=== PATIENT | male | born 1950 | race Hispanic/Latino ===

== ENCOUNTER 2018-06-22 09:02 | Inpatient (IN) | payer MEDICAID, MEDICARE ==
[2018-06-22] MEDS ORDERED: TDAP Vaccine 0.5 mL Syr IM ONE (09:19)
--- NOTE | 2018-06-22 09:26 | ED PDOC ---
Arrival/HPI - General Chief Complaint: Syncope Time Seen by Provider: 06/22/18 09:03 Historian: Patient - Critical Care Critical Care Minutes: 30 minutes - History of Present Illness Narrative History of Present Illness (Text): 06/22/18 09:23 A 67 year old male is brought into the emergency department for further evaluation s/p syncopal episode. Patient reports that he was at [employer] doing a reading when he syncopized, sustaining lacerations to his left eye and left lower lip. He states that he felt sweaty and nauseous at the time. He notes that he has been nauseous intermittently for the last days. The patient denies fevers, chills, headache, dizziness, lightheadedness, palpitations, chest pain, shortness of breath, dyspnea on exertion, cough, abdominal pain, vomiting, diarrhea, back pain, neck pain, urinary/bowel changes, or any other complaint. Time/Duration: Prior to Arrival Symptom Onset: Sudden Symptom Course: Resolved Activities at Onset: Rest, Light Context: Other (Orthodoxy) Associated Symptoms (Text): 06/22/18 10:27 syncopal episode in [employer] this morning. No chest pain or palpitations. Some nausea and dizziness. No vomiting. No dyspnea. No headache. No numbness tingling or paresthesias. Generalized, but no focal, weakness. He has never experienced this previously. Past Medical History - Provider Review Nursing Documentation Reviewed: Yes - Psychiatric Hx Substance Use: No Family/Social History - Physician Review Nursing Documentation Reviewed: Yes Family/Social History: No Known Family HX Smoking Status: Never Smoked Hx Alcohol Use: No Hx Substance Use: No Allergies/Home Meds Allergies/Adverse Reactions: Allergies No Known Allergies Allergy (Verified 06/22/18 09:19) Home Medications: Home Meds Medication Instructions Recorded Confirmed Simvastatin [Zocor] 20 mg PO DAILY 06/22/18 06/22/18 Review of Systems - Physician Review All systems were reviewed & negative as marked: Yes - Review of Systems Constitutional: absent: Fatigue, Fevers Respiratory: absent: SOB, Cough Cardiovascular: Syncope. absent: Chest Pain, Palpitations, LARKIN Gastrointestinal: Nausea. absent: Abdominal Pain, Stool Changes, Diarrhea, Vomiting Musculoskeletal: absent: Back Pain, Neck Pain Neurological: absent: Headache, Dizziness, Focal Weakness, Gait Changes Endocrine: Diaphoresis Physical Exam Temperature: Afebrile Blood Pressure: Normal Pulse: Regular Respiratory Rate: Normal Appearance: Positive for: Well-Appearing, Non-Toxic, Comfortable Pain Distress: None Mental Status: Positive for: Alert and Oriented X 3 - Systems Exam Head: Present: Normocephalic, Laceration (3 cm laceration of the left eyebrow. ) Pupils: Present: PERRL Extroacular Muscles: Present: EOMI Conjunctiva: Present: Normal Ears: Present: NORMAL TM, Normal Canal. No: Erythema, TM Bulging Mouth: Present: Moist Mucous Membranes. No: Normal Lips (Superficial laceration of left lower lip. does not require intervention.) Pharnyx: No: ERYTHEMA, EXUDATE, TONSILS ENLARGED Neck: Present: Normal Range of Motion Respiratory/Chest: Present: Clear to Auscultation, Good Air Exchange. No: Respiratory Distress, Accessory Muscle Use Cardiovascular: Present: Regular Rate and Rhythm, Normal S1, S2. No: Murmurs Abdomen: No: Tenderness, Distention, Peritoneal Signs Back: Present: Normal Inspection Upper Extremity: Present: Normal Inspection. No: Cyanosis, Edema Lower Extremity: Present: Normal Inspection. No: Edema Neurological: Present: GCS=15, CN II-XII Intact, Speech Normal, Motor Func Grossly Intact, Normal Sensory Function, Normal Cerebellar Funct Skin: Present: Warm, Dry, Normal Color. No: Rashes Psychiatric: Present: Alert, Oriented x 3, Normal Insight, Normal Concentration Medical Decision Making ED Course and Treatment: 06/22/18 09:27 Impression: A 67 year old male presents to the emergency department for further evaluation s/p syncopal episode. Plan: -- Head CT -- EKG -- Chest X-ray -- Labs -- Urinalysis -- Boostrix Vaccine -- Reassess and disposition Progress Notes: PROCEDURE: LACERATION REPAIR Performed by the emergency provider Location: Just inferior to left eyebrow Length: 3 cm Distal CMS: Normal. No deficits. Neurovascularly intact. Anesthesia: 2 cc of Lidocaine 1% Preparation: The wound was cleaned with NS and Betadyne. The area was prepped and draped in the usual sterile fashion. Exploration: The wound was explored and 3 small foreign bodies were found and removed. Procedure: The wound was closed with 6- O proline. There was uninterrupted approximation. In total, 7 were used. Post-Procedure: Good closure and hemostasis. The patient tolerated the procedure well and there were no complications. CSM remains intact. Post procedure dressing applied. 06/22/18 10:29 EKG shows normal sinus rhythm rate approximately [address] or T-wave changes. 06/22/18 10:29 eyebrow sutured by KATHIA Santoro. Chest X-ray Signed By: Brian Rehman MD Date Signed: 06/22/18 1030 IMPRESSION: No active disease. PROCEDURE: CT HEAD WITHOUT CONTRAST Signed By: Brian Rehman MD Date Signed: 06/22/18 1044 IMPRESSION: There is a small amount of subarachnoid blood in the precentral sulcus over the left posterior frontal convexity. 06/22/18 11:03: Case discussed with Dr. Sprague, covering for Dr. Coles, who accepts patient to Dr. Coles's service. Case discussed with Dr. Carranza. 06/22/18 11:05: Case discussed with Dr. Marsh. 06/22/18 11:34 - Lab Interpretations I have reviewed the lab results: Yes - RAD Interpretation Radiology Orders: 06/22/18 09:20 HEAD W/O CONTRAST [CT] Stat CHEST PORTABLE [RAD] Stat - EKG Interpretation Interpreted by ED Physician: Yes Type: 12 lead EKG - Medication Orders Current Medication Orders: Discontinued Medications Tetanus/Reduced Diphtheria/Acell Pertussis (Boostrix Vaccine Inj) 0.5 ml IM .ONCE ONE Stop: 06/22/18 09:20 - Scribe Statement The provider has reviewed the documentation as recorded by the Tobias Porras Provider Scribe Attestation: All medical record entries made by the Scribriccardo were at my direction and personally dictated by me. I have reviewed the chart and agree that the record accurately reflects my personal performance of the history, physical exam, medical decision making, and the department course for this patient. I have also personally directed, reviewed, and agree with the discharge instructions and disposition. Disposition/Present on Arrival - Present on Arrival Any Indicators Present on Arrival: No History of DVT/PE: No History of Uncontrolled Diabetes: No Urinary Catheter: No History of Decub. Ulcer: No History Surgical Site Infection Following: None - Disposition Have Diagnosis and Disposition been Completed?: Yes Diagnosis: Syncope, Subarachnoid hemorrhage after traumatic injury without open intracranial wound, with prolonged loss of consciousness and return to pre- existing level of consciousness, Eyebrow laceration, Nausea Disposition: HOSPITALIZED Disposition Time: 11:07 Patient Plan: Admission, ICU Patient Problems: Current Active Problems Problem Status Onset Eyebrow laceration Acute Nausea Acute Subarachnoid hemorrhage after traumatic injury without open intracranial wound, with prolonged loss of consciousness and return to pre-existing level of consciousness Acute Syncope Acute Condition: CRITICAL
[2018-06-22 09:56] LABS: BASO # 0.02 K/mm3 (0.0-2.0); BASO % 0.2 % (0.0-3.0); EOS % 0.3 % (1.5-5.0); GRAN # 10.04 (1.4-6.5); GRAN % 78.8 % (50.0-68.0); HEMOGLOBIN 12.9 g/dL (14.0-18.0); LYMPH # 1.2 (1.2-3.4); LYMPH % 9.6 % (22.0-35.0); MEAN CELL VOLUME 92.3 fl (80.0-105.0); MEAN CORPUSCULAR HEMOGLOBIN 30.9 pg (25.0-35.0); MEAN CORPUSCULAR HGB CONC 33.4 g/dl (31.0-37.0); MEAN PLATELET VOLUME 9.4 fl (7.0-11.0); MONO # 1.4 (0.1-0.6); MONO % 11.1 % (1.0-6.0); RBC 4.18 10^6/uL (3.5-6.1); RED CELL DISTRIBUTION WIDTH 13.5 % (11.5-14.5); WHITE BLOOD COUNT 12.7 10^3/uL (4.5-11.0)
[2018-06-22 10:06] LABS: ALB/GLOB RATIO 1.2 (1.1-1.8); ALBUMIN 4.4 g/dL (3.0-4.8); ALT/SGPT 29 U/L (7-56); AST/SGOT 52 U/L (17-59); BLOOD UREA NITROGEN 16 mg/dL (7-21); GFR NON-AFRICAN AMERICAN > 60
[2018-06-22 10:17] LABS: TROPONIN I < 0.01 ng/mL
--- NOTE | 2018-06-22 10:34 | RAD ---
Date of service: 06/22/2018 HISTORY: syncope COMPARISON: No prior. FINDINGS: LUNGS: No active pulmonary disease. PLEURA: No significant pleural effusion identified, no pneumothorax apparent. CARDIOVASCULAR: No aortic atherosclerotic calcification present. Normal cardiac size. No pulmonary vascular congestion. OSSEOUS STRUCTURES: No significant abnormalities. VISUALIZED UPPER ABDOMEN: Normal. OTHER FINDINGS: None. IMPRESSION: No active disease.
[2018-06-22 10:42] LABS: CK-MB 2.8 ng/mL (0.0-3.6)
--- NOTE | 2018-06-22 10:48 | CT ---
Date of service: 06/22/2018 PROCEDURE: CT HEAD WITHOUT CONTRAST. HISTORY: syncope COMPARISON: None available. TECHNIQUE: Axial computed tomography images were obtained through the head/brain without intravenous contrast. Radiation dose: Total exam DLP = 941.23 mGy-cm. This CT exam was performed using one or more of the following dose reduction techniques: Automated exposure control, adjustment of the mA and/or kV according to patient size, and/or use of iterative reconstruction technique. FINDINGS: HEMORRHAGE: There is a small amount of subarachnoid blood in the precentral sulcus over the left posterior frontal convexity. This is best seen on image 49 of series 4. The pattern fits a posttraumatic bleed. Aneurysmal bleeds would be expected to show hemorrhage in the suprasellar cistern. BRAIN: No mass effect or edema. No atrophy or chronic microvascular ischemic changes. VENTRICLES: Unremarkable. No hydrocephalus. CALVARIUM: Unremarkable. PARANASAL SINUSES: Unremarkable as visualized. No significant inflammatory changes. MASTOID AIR CELLS: Unremarkable as visualized. No inflammatory changes. OTHER FINDINGS: Findings were discussed with Dr. Garcia at 10:40 a.m. IMPRESSION: There is a small amount of subarachnoid blood in the precentral sulcus over the left posterior frontal convexity.
[2018-06-22 11:06] LABS: INR 1.22; PARTIAL THROMBOPLASTIN TIME 29.3 Seconds (25.1-36.5); PROTHROMBIN TIME 14.1 SECONDS (9.4-12.5)
[2018-06-22 11:50] VITALS: BMI 23.6
[2018-06-22] MEDS ORDERED: Sodium Chloride 0.9% 1,000 ML IV STA ×2 (13:12→16:00)
[2018-06-22 14:01] LABS: URINE BILIRUBIN NEGATIVE (NEGATIVE); URINE BLOOD MODERATE (NEGATIVE); URINE GLUCOSE (UA) NEGATIVE (NEGATIVE); URINE LEUKOCYTE ESTERASE NEGATIVE Leu/uL (NEGATIVE); URINE PROTEIN TRACE mg/dL (<30 mg/dL); URINE UROBILINOGEN 0.2 E.U./dL (<1 E.U./dL)
[2018-06-22 14:02] LABS: URINE APPEARANCE CLEAR (CLEAR); URINE COLOR YELLOW (YELLOW)
[2018-06-22 14:10] LABS: URINE BACTERIA MANY /hpf; URINE HYALINE CAST 0 - 2 /hpf; URINE RBC 20 - 25 /hpf (0-2)
[2018-06-22 14:11] LABS: URINE AMORPHOUS SEDIMENT FEW /hpf; URINE COARSE GRANULAR CAST TRACE /hpf
--- NOTE | 2018-06-22 18:40 | CON ---
DATE OF CONSULTATION: 06/22/2018 REQUESTING PHYSICIAN: Dr. Coles CHIEF COMPLAINT: The patient had syncopal episode. HISTORY OF PRESENT ILLNESS: The patient is a 67-year-old male that has been healthy most of his life. He has a history of hyperlipidemia and is on medications for that. He states he has no high blood pressure. No other history of syncopal episodes. The patient was at [employer] and was reading when he had the feelings of old being flushed and sweaty and had syncopal episode. There is a laceration on the upper part of his left eyelid as well as his lower lip. The patient has no complaints of headache or dizziness at this time. No nauseousness or vomiting. No other complaints that would be secondary to hitting his head. Noted on CT scan of the of the head, it does show that he has a small subarachnoid bleed. Neurosurgery has been notified and the patient has been admitted to intensive care unit for observation. PAST MEDICAL HISTORY: As above. FAMILY HISTORY: Noncontributory. SOCIAL HISTORY: No history of smoking, EtOH abuse or drug abuse. CURRENT MEDICATIONS: Can be evaluated as per the nurse's intake form. ALLERGIES: HE HAS NO KNOWN ALLERGIES. REVIEW OF SYSTEMS: CONSTITUTIONAL: All negative. HEENT: Note that the patient had a syncopal episode and laceration over his left eye as well as laceration of his lip with some ecchymosis of that area as well. RESPIRATORY: All negative. CARDIOVASCULAR: The patient did have the syncopal episode. GASTROINTESTINAL: He had some complaints of nauseousness. : All negative. MUSCULOSKELETAL: All negative. NEUROPSYCHIATRIC: The patient had the syncopal episode. ENDOCRINE: All negative. IMMUNOLOGICAL: Negative. HEMATOLOGICAL: Negative. PHYSICAL EXAMINATION: VITAL SIGNS: His temperature is 98, pulses is 82, respirations are 19, and BP is 129/83. SKIN: Warm and dry. HEENT: Head is atraumatic, but the face shows a fairly large laceration over the left eye and a small laceration on the left side on his lower lip. There is some ecchymosis around the left eye and the lip as well. NECK: The patient has no JVD. No thyroid enlargement or lymph nodes. HEART: Regular rate and rhythm. Normal S1 and S2. LUNGS: Clear breath sounds bilaterally. ABDOMEN: Soft, nontender. Normal bowel sounds. No organomegaly noted. GENITALIA: Deferred. RECTAL: Deferred. MUSCULOSKELETAL: No joint deformities. EXTREMITIES: No significant edema. NEUROLOGICAL: He is grossly intact. LABORATORY DATA: His white count is 12.7, hemoglobin is 12.9, hematocrit 38.6 with platelets of 282,000. The patient's PT is 14.1, INR is 1.22, PTT is 29.3. Sodium is 137, potassium 3.8, chloride 101, CO2 of 27 with a BUN of 16, creatinine of 0.8 and a glucose of 126. The patient's chest x-ray is within normal limits. CT of the head reveals that there is a small amount of subarachnoid blood in the precentral sulcus over the left posterior frontal convexity. IMPRESSION: This patient has a syncopal episode and also noted to having a small subarachnoid bleed. He has a facial laceration over the left eye with contusions in that area and a small laceration of his lower lip. Note that the patient did complain of upper respiratory tract infection with cough for the past 2 days. PLAN: The patient will be admitted to the intensive care unit for close observation. We will do close neuro checks. The patient has had neurosurgery consult. We will start IV fluids for hydration. The patient will be observed closely in the intensive care unit. We will continue to treat aggressively along with the other consultants and the primary care doctor. Keagan Marsh MD
--- NOTE | 2018-06-22 20:41 | CARD ---
APPROVED REPORT Date of service: 06/22/2018 EKG Measurement Heart [id number] <Conclusion> Normal sinus rhythm Normal ECG
--- NOTE | 2018-06-22 20:43 | CP.PCM.CON ---
History of Present Illness - History of Present Illness History of Present Illness: Tiny TSAH in one L frontal sulcus of no clinical import suggest f/u CT am - if unchanged/improved can dc Pt from NRS perspective Past Patient History - Past Social History Smoking Status: Never Smoked - CARDIAC Hx Hypercholesterolemia: Yes - MUSCULOSKELETAL/RHEUMATOLOGICAL Hx Falls: No - PSYCHIATRIC Hx Substance Use: No - SURGICAL HISTORY Hx Appendectomy: Yes Meds Allergies/Adverse Reactions: Allergies Allergy/AdvReac Type Severity Reaction Status Date / Time No Known Allergies Allergy Verified 06/22/18 09:19 - Medications Medications: Current Medications Acetaminophen (Tylenol 325mg Tab) 650 mg PO Q6H PRN PRN Reason: Fever >100.4 F Atorvastatin Calcium (Lipitor) 10 mg PO DAILY SHAWN Last Admin: 06/22/18 17:42 Dose: 10 mg Sodium Chloride (Sodium Chloride 0.9%) 1,000 mls @ 75 mls/hr IV [id number] STA Stop: 06/23/18 02:31 Last Admin: 06/22/18 16:00 Dose: 75 mls/hr Results - Vital Signs Recent Vital Signs: Last Vital Signs Temp 99 F 06/22/18 16:00 Pulse 84 06/22/18 19:50 Resp 35 H 06/22/18 19:50 BP 130/60 06/22/18 19:00 Pulse Ox 96 06/22/18 19:50 - Labs Result Diagrams: 06/22/18 09:40 06/22/18 09:40 Labs: Laboratory Results - last 24 hr 06/22/18 06/22/18 06/22/18 09:40 09:40 09:40 WBC 12.7 H RBC 4.18 Hgb 12.9 L Hct 38.6 L MCV 92.3 MCH 30.9 MCHC 33.4 RDW 13.5 Plt Count 282 MPV 9.4 Gran % 78.8 H Lymph % (Auto) 9.6 L Gallia % (Auto) 11.1 H Eos % (Auto) 0.3 L Baso % (Auto) 0.2 Gran # 10.04 H Lymph # (Auto) 1.2 Gallia # (Auto) 1.4 H Eos # (Auto) 0.0 Baso # (Auto) 0.02 PT 14.1 H INR 1.22 APTT 29.3 Sodium 137 Potassium 3.8 Chloride 101 Carbon Dioxide 27 Anion Gap 13 BUN 16 Creatinine 0.8 Est GFR ( Amer) > 60 Est GFR (Non-Af Amer) > 60 Random Glucose 126 H Calcium 9.0 Phosphorus 2.6 Magnesium 2.2 Total Bilirubin 0.6 AST 52 ALT 29 Alkaline Phosphatase 85 Lactate Dehydrogenase 582 Total Creatine Kinase 759 H CK-MB (CK-2) 2.8 CK-MB (CK-2) % Cancelled Troponin I < 0.01 Total Protein 8.0 Albumin 4.4 Globulin 3.6 Albumin/Globulin Ratio 1.2 Urine Color Urine Appearance Urine pH Ur Specific Ronan Urine Protein Urine Glucose (UA) Urine Ketones Urine Blood Urine Nitrate Urine Bilirubin Urine Urobilinogen Ur Leukocyte Esterase Urine RBC Urine WBC Ur Epithelial Cells Amorphous Sediment Urine Bacteria Hyaline Casts Coarse Granular Casts 06/22/18 06/22/18 13:30 17:10 WBC RBC Hgb Hct MCV MCH MCHC RDW Plt Count MPV Gran % Lymph % (Auto) Gallia % (Auto) Eos % (Auto) Baso % (Auto) Gran # Lymph # (Auto) Gallia # (Auto) Eos # (Auto) Baso # (Auto) PT INR APTT Sodium Potassium Chloride Carbon Dioxide Anion Gap BUN Creatinine Est GFR ( Amer) Est GFR (Non-Af Amer) Random Glucose Calcium Phosphorus Magnesium Total Bilirubin AST ALT Alkaline Phosphatase Lactate Dehydrogenase Total Creatine Kinase CK-MB (CK-2) CK-MB (CK-2) % Troponin I < 0.01 Total Protein Albumin Globulin Albumin/Globulin Ratio Urine Color Yellow Urine Appearance Clear Urine pH 6.0 Ur Specific Ronan >= 1.030 Urine Protein Trace H Urine Glucose (UA) Negative Urine Ketones 40 H Urine Blood Moderate H Urine Nitrate Negative Urine Bilirubin Negative Urine Urobilinogen 0.2 Ur Leukocyte Esterase Negative Urine RBC 20 - 25 H Urine WBC 1 - 3 Ur Epithelial Cells None Amorphous Sediment Few Urine Bacteria Many Hyaline Casts 0 - 2 Coarse Granular Casts Trace
--- NOTE | 2018-06-22 21:53 | HP ---
DATE OF EXAM: 06/22/2018 HISTORY OF PRESENT ILLNESS: The patient is a 67-year-old. The patient . The patient states [place] [employer]. After he read his , he was walking down and he does not know what happened, and he found himself on the floor and people were around him. He denies any chest pain. No history of losing consciousness. He states he might have lost consciousness for a minute, but he regained. He does admit not eating anything or drinking since he woke up, and he does not have any episode like this before. He denies any chest pain. No history of palpitation. He states he is pretty healthy and only takes antihypertensive. Denies any headache. Denies any dizziness. The patient states he has mild headache now and currently, otherwise, he is feeling well except discomfort in the left forehead area where he had a laceration and he got it stitched. 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 ALLERGIES: HE IS NOT ALLERGIC TO ANY MEDICATIONS. MEDICATIONS: At home, he is on Zocor 20 mg daily. SOCIAL HISTORY: Denies smoking or drinking alcohol. REVIEW OF SYSTEMS: Only left forehead discomfort and mild headache. PHYSICAL EXAMINATION GENERAL: He is awake, alert, oriented, fully communicative, answers appropriately. HEENT: He has a right forehead small hematoma and has a laceration that has been stitched in the ER. VITAL SIGNS: He is afebrile, pulse 92, respirations 20, blood pressure 129/67. LUNGS: Bilateral fair airflow. No rhonchi or crackle. HEART: S1, S2 audible. ABDOMEN: Soft, nontender. No rebound. No guarding. NEUROLOGIC: The patient is awake, alert, oriented, communicative. Moves all extremities. LABORATORY DATA: WBC is 12.7, hemoglobin 12.9, hematocrit 38.6, platelets 282. PT 14.1, INR 1.22. Chemistry; sodium 137, potassium 3.8, chloride 101, CO2 of 27, BUN 16, creatinine 0.8, blood sugar 127. LFTs are within normal limits. CPK 759. Troponin is 0.01. Urine shows 20-25 rbc's, moderate blood. DIAGNOSTIC DATA: CT scan of the head and brain done that shows there is a small amount of subarachnoid blood in the precentral sulcus over the left posterior frontal convexity. ASSESSMENT: 1. Probably syncope, could be dehydration. 2. Small subarachnoid posterior frontal bleed. 3. History of hyperlipidemia. 4. Left forehead laceration. PLAN: The patient will be watched over in ICU. Give him IV fluid. We will order for carotid Doppler, resume his statins, order for echocardiogram, and we will follow up his electrolytes, thyroid profile, CBC, and the troponin in a.m. Khai Sprague MD
[2018-06-23 06:36] LABS: BASO # 0.01 K/mm3 (0.0-2.0); BASO % 0.1 % (0.0-3.0); EOS % 0.1 % (1.5-5.0); GRAN # 8.72 (1.4-6.5); GRAN % 75.7 % (50.0-68.0); HEMOGLOBIN 13.2 g/dL (14.0-18.0); LYMPH # 1.6 (1.2-3.4); LYMPH % 13.9 % (22.0-35.0); MEAN CELL VOLUME 92.9 fl (80.0-105.0); MEAN CORPUSCULAR HEMOGLOBIN 30.4 pg (25.0-35.0); MEAN CORPUSCULAR HGB CONC 32.8 g/dl (31.0-37.0); MEAN PLATELET VOLUME 9.2 fl (7.0-11.0); MONO # 1.2 (0.1-0.6); MONO % 10.2 % (1.0-6.0); RBC 4.34 10^6/uL (3.5-6.1); RED CELL DISTRIBUTION WIDTH 13.5 % (11.5-14.5); WHITE BLOOD COUNT 11.5 10^3/uL (4.5-11.0)
--- NOTE | 2018-06-23 06:56 | CP.CCUPN ---
<Herbert Harris - Last Filed: 06/23/18 07:27> CCU Objective - Vital Signs / Intake & Output Vital Signs (Last 4 hours): Vital Signs Pulse Resp BP Pulse Ox 06/23/18 06:40 85 34 H 99 06/23/18 06:30 95 H 39 H 98 06/23/18 06:20 83 23 99 06/23/18 06:10 78 23 98 06/23/18 06:00 77 18 152/80 H 99 06/23/18 05:50 75 26 H 98 06/23/18 05:40 82 25 H 97 06/23/18 05:30 76 18 98 06/23/18 05:20 79 14 98 06/23/18 05:10 73 22 99 06/23/18 05:00 148/73 06/23/18 04:59 72 15 97 06/23/18 04:50 75 12 98 06/23/18 04:40 75 22 98 06/23/18 04:30 75 12 98 06/23/18 04:20 74 22 98 06/23/18 04:10 76 37 H 98 06/23/18 04:00 78 21 152/72 H 99 06/23/18 03:50 73 16 99 06/23/18 03:40 75 20 98 06/23/18 03:30 81 36 H 98 Intake and Output (Last 8hrs): Intake & Output 06/22/18 06/23/18 06/23/18 22:59 06:59 14:59 Intake Total 980 810 Output Total 350 620 Balance 630 190 Weight 163 lb Intake: IV 300 750 Right Antecubital 300 750 Oral 680 60 Output: Urine 350 620 Urine, Voided 350 620 Stool 0 Other: # Bowel Movements 0 - Medications Active Medications: Active Medications Generic Name Dose Route Start Last Admin Trade Name Freq PRN Reason Stop Dose Admin Acetaminophen 650 mg 06/22/18 16:01 06/22/18 21:04 Tylenol 325mg Tab PO 650 mg Q6H PRN Administration Fever >100.4 F Atorvastatin Calcium 10 mg 06/22/18 16:00 06/22/18 17:42 Lipitor PO 10 mg DAILY SHAWN Administration - Patient Studies Lab Studies: Lab Studies 06/23/18 06/22/18 06/22/18 Range/Units 05:25 17:10 13:30 WBC 11.5 H (4.5-11.0) 10^3/uL RBC 4.34 (3.5-6.1) 10^6/uL Hgb 13.2 L (14.0-18.0) g/dL Hct 40.3 L (42.0-52.0) % MCV 92.9 (80.0-105.0) fl MCH 30.4 (25.0-35.0) pg MCHC 32.8 (31.0-37.0) g/dl RDW 13.5 (11.5-14.5) % Plt Count 270 (120.0-450.0) 10^3/uL MPV 9.2 (7.0-11.0) fl Gran % 75.7 H (50.0-68.0) % Lymph % (Auto) 13.9 L (22.0-35.0) % Ray % (Auto) 10.2 H (1.0-6.0) % Eos % (Auto) 0.1 L (1.5-5.0) % Baso % (Auto) 0.1 (0.0-3.0) % Gran # 8.72 H (1.4-6.5) Lymph # (Auto) 1.6 (1.2-3.4) Ray # (Auto) 1.2 H (0.1-0.6) Eos # (Auto) 0.0 (0.0-0.7) Baso # (Auto) 0.01 (0.0-2.0) K/mm3 PT (9.4-12.5) SECONDS INR APTT (25.1-36.5) Seconds Sodium (132-148) mmol/L Potassium (3.6-5.0) mmol/L Chloride (98-107) mmol/L Carbon Dioxide (21-33) mmol/L Anion Gap (10-20) BUN (7-21) mg/dL Creatinine (0.8-1.5) mg/dl Est GFR ( Amer) Est GFR (Non-Af Amer) Random Glucose (70-110) mg/dL Calcium (8.4-10.5) mg/dL Phosphorus (2.5-4.5) mg/dL Magnesium (1.7-2.2) mg/dL Total Bilirubin (0.2-1.3) mg/dL AST (17-59) U/L ALT (7-56) U/L Alkaline Phosphatase (38-126) U/L Lactate Dehydrogenase (333-699) U/L Total Creatine Kinase (35-230) U/L CK-MB (CK-2) (0.0-3.6) ng/mL CK-MB (CK-2) % Troponin I < 0.01 ng/mL Total Protein (5.8-8.3) g/dL Albumin (3.0-4.8) g/dL Globulin gm/dL Albumin/Globulin Ratio (1.1-1.8) Urine Color Yellow (YELLOW) Urine Appearance Clear (CLEAR) Urine pH 6.0 (4.7-8.0) Ur Specific [place] >= 1.030 (1.005-1.035) Urine Protein Trace H (<30 mg/dL) mg/dL Urine Glucose (UA) Negative (NEGATIVE) mg/dL Urine Ketones 40 H (NEGATIVE) mg/dL Urine Blood Moderate H (NEGATIVE) Urine Nitrate Negative (NEGATIVE) Urine Bilirubin Negative (NEGATIVE) Urine Urobilinogen 0.2 (<1 E.U./dL) E.U./dL Ur Leukocyte Esterase Negative (NEGATIVE) Velia/uL Urine RBC 20 - 25 H (0-2) /hpf Urine WBC 1 - 3 (0-6) /hpf Ur Epithelial Cells None (0-5) /hpf Amorphous Sediment Few (NONE) /hpf Urine Bacteria Many (NONE) /hpf Hyaline Casts 0 - 2 (NONE) /hpf Coarse Granular Casts Trace (NONE) /hpf 06/22/18 06/22/18 06/22/18 Range/Units 09:40 09:40 09:40 WBC 12.7 H (4.5-11.0) 10^3/uL RBC 4.18 (3.5-6.1) 10^6/uL Hgb 12.9 L (14.0-18.0) g/dL Hct 38.6 L (42.0-52.0) % MCV 92.3 (80.0-105.0) fl MCH 30.9 (25.0-35.0) pg MCHC 33.4 (31.0-37.0) g/dl RDW 13.5 (11.5-14.5) % Plt Count 282 (120.0-450.0) 10^3/uL MPV 9.4 (7.0-11.0) fl Gran % 78.8 H (50.0-68.0) % Lymph % (Auto) 9.6 L (22.0-35.0) % Ray % (Auto) 11.1 H (1.0-6.0) % Eos % (Auto) 0.3 L (1.5-5.0) % Baso % (Auto) 0.2 (0.0-3.0) % Gran # 10.04 H (1.4-6.5) Lymph # (Auto) 1.2 (1.2-3.4) Ray # (Auto) 1.4 H (0.1-0.6) Eos # (Auto) 0.0 (0.0-0.7) Baso # (Auto) 0.02 (0.0-2.0) K/mm3 PT 14.1 H (9.4-12.5) SECONDS INR 1.22 APTT 29.3 (25.1-36.5) Seconds Sodium 137 (132-148) mmol/L Potassium 3.8 (3.6-5.0) mmol/L Chloride 101 (98-107) mmol/L Carbon Dioxide 27 (21-33) mmol/L Anion Gap 13 (10-20) BUN 16 (7-21) mg/dL Creatinine 0.8 (0.8-1.5) mg/dl Est GFR ( Amer) > 60 Est GFR (Non-Af Amer) > 60 Random Glucose 126 H (70-110) mg/dL Calcium 9.0 (8.4-10.5) mg/dL Phosphorus 2.6 (2.5-4.5) mg/dL Magnesium 2.2 (1.7-2.2) mg/dL Total Bilirubin 0.6 (0.2-1.3) mg/dL AST 52 (17-59) U/L ALT 29 (7-56) U/L Alkaline Phosphatase 85 (38-126) U/L Lactate Dehydrogenase 582 (333-699) U/L Total Creatine Kinase 759 H (35-230) U/L CK-MB (CK-2) 2.8 (0.0-3.6) ng/mL CK-MB (CK-2) % Cancelled Troponin I < 0.01 ng/mL Total Protein 8.0 (5.8-8.3) g/dL Albumin 4.4 (3.0-4.8) g/dL Globulin 3.6 gm/dL Albumin/Globulin Ratio 1.2 (1.1-1.8) Urine Color (YELLOW) Urine Appearance (CLEAR) Urine pH (4.7-8.0) Ur Specific [place] (1.005-1.035) Urine Protein (<30 mg/dL) mg/dL Urine Glucose (UA) (NEGATIVE) mg/dL Urine Ketones (NEGATIVE) mg/dL Urine Blood (NEGATIVE) Urine Nitrate (NEGATIVE) Urine Bilirubin (NEGATIVE) Urine Urobilinogen (<1 E.U./dL) E.U./dL Ur Leukocyte Esterase (NEGATIVE) Velia/uL Urine RBC (0-2) /hpf Urine WBC (0-6) /hpf Ur Epithelial Cells (0-5) /hpf Amorphous Sediment (NONE) /hpf Urine Bacteria (NONE) /hpf Hyaline Casts (NONE) /hpf Coarse Granular Casts (NONE) /hpf Laboratory Results - last 24 hr 06/22/18 06/22/18 06/22/18 09:40 09:40 09:40 WBC 12.7 H RBC 4.18 Hgb 12.9 L Hct 38.6 L MCV 92.3 MCH 30.9 MCHC 33.4 RDW 13.5 Plt Count 282 MPV 9.4 Gran % 78.8 H Lymph % (Auto) 9.6 L Ray % (Auto) 11.1 H Eos % (Auto) 0.3 L Baso % (Auto) 0.2 Gran # 10.04 H Lymph # (Auto) 1.2 Ray # (Auto) 1.4 H Eos # (Auto) 0.0 Baso # (Auto) 0.02 PT 14.1 H INR 1.22 APTT 29.3 Sodium 137 Potassium 3.8 Chloride 101 Carbon Dioxide 27 Anion Gap 13 BUN 16 Creatinine 0.8 Est GFR ( Amer) > 60 Est GFR (Non-Af Amer) > 60 Random Glucose 126 H Calcium 9.0 Phosphorus 2.6 Magnesium 2.2 Total Bilirubin 0.6 AST 52 ALT 29 Alkaline Phosphatase 85 Lactate Dehydrogenase 582 Total Creatine Kinase 759 H CK-MB (CK-2) 2.8 CK-MB (CK-2) % Cancelled Troponin I < 0.01 Total Protein 8.0 Albumin 4.4 Globulin 3.6 Albumin/Globulin Ratio 1.2 Urine Color Urine Appearance Urine pH Ur Specific [place] Urine Protein Urine Glucose (UA) Urine Ketones Urine Blood Urine Nitrate Urine Bilirubin Urine Urobilinogen Ur Leukocyte Esterase Urine RBC Urine WBC Ur Epithelial Cells Amorphous Sediment Urine Bacteria Hyaline Casts Coarse Granular Casts 06/22/18 06/22/18 06/23/18 13:30 17:10 05:25 WBC 11.5 H RBC 4.34 Hgb 13.2 L Hct 40.3 L MCV 92.9 MCH 30.4 MCHC 32.8 RDW 13.5 Plt Count 270 MPV 9.2 Gran % 75.7 H Lymph % (Auto) 13.9 L Ray % (Auto) 10.2 H Eos % (Auto) 0.1 L Baso % (Auto) 0.1 Gran # 8.72 H Lymph # (Auto) 1.6 Ray # (Auto) 1.2 H Eos # (Auto) 0.0 Baso # (Auto) 0.01 PT INR APTT Sodium Potassium Chloride Carbon Dioxide Anion Gap BUN Creatinine Est GFR ( Amer) Est GFR (Non-Af Amer) Random Glucose Calcium Phosphorus Magnesium Total Bilirubin AST ALT Alkaline Phosphatase Lactate Dehydrogenase Total Creatine Kinase CK-MB (CK-2) CK-MB (CK-2) % Troponin I < 0.01 Total Protein Albumin Globulin Albumin/Globulin Ratio Urine Color Yellow Urine Appearance Clear Urine pH 6.0 Ur Specific [place] >= 1.030 Urine Protein Trace H Urine Glucose (UA) Negative Urine Ketones 40 H Urine Blood Moderate H Urine Nitrate Negative Urine Bilirubin Negative Urine Urobilinogen 0.2 Ur Leukocyte Esterase Negative Urine RBC 20 - 25 H Urine WBC 1 - 3 Ur Epithelial Cells None Amorphous Sediment Few Urine Bacteria Many Hyaline Casts 0 - 2 Coarse Granular Casts Trace Radiology Impressions: Radiology Impressions Chest X-Ray 06/22/18 09:20 IMPRESSION: No active disease. Head CT 06/22/18 09:20 IMPRESSION: There is a small amount of subarachnoid blood in the precentral sulcus over the left posterior frontal convexity. EKG/Cardiology Studies: Cardiology / EKG Studies 06/22/18 09:20 ELECTROCARDIOGRAM Stat Comment: Reason For Exam: syncope Critical Care Progress Note - Nutrition Nutrition: Nutrition Category Date Time Status Liquid Diet [DIET] Diets 06/22/18 Lunch Ordered <Anthony Jesus - Last Filed: 06/23/18 10:36> CCU Subjective - Physician Review Subjective (Free Text): Anthony Jesus, PGY-1 Progress Note for ICU Patient seen and evaluated at bedside. No acute events reported overnight. Left eyebrow sutured and lip bruise without active bleed. Reports mild blurry vision on L side but denies chest pain, palpitations, shortness of breath, headaches, numbness, tingling, fevers, chills. CCU Objective - Vital Signs / Intake & Output Vital Signs (Last 4 hours): Vital Signs Pulse Resp BP Pulse Ox 06/23/18 06:40 85 34 H 99 06/23/18 06:30 95 H 39 H 98 06/23/18 06:20 83 23 99 06/23/18 06:10 78 23 98 06/23/18 06:00 77 18 152/80 H 99 06/23/18 05:50 75 26 H 98 06/23/18 05:40 82 25 H 97 06/23/18 05:30 76 18 98 06/23/18 05:20 79 14 98 06/23/18 05:10 73 22 99 06/23/18 05:00 148/73 06/23/18 04:59 72 15 97 06/23/18 04:50 75 12 98 06/23/18 04:40 75 22 98 06/23/18 04:30 75 12 98 06/23/18 04:20 74 22 98 06/23/18 04:10 76 37 H 98 06/23/18 04:00 78 21 152/72 H 99 06/23/18 03:50 73 16 99 06/23/18 03:40 75 20 98 06/23/18 03:30 81 36 H 98 06/23/18 03:20 76 31 H 98 06/23/18 03:10 71 33 H 99 06/23/18 03:00 71 22 136/74 99 Intake and Output (Last 8hrs): Intake & Output 06/22/18 06/22/18 06/23/18 14:59 22:59 06:59 Intake Total 980 810 Output Total 350 620 Balance 630 190 Weight 74.843 kg 73.936 kg Intake: IV 300 750 Right Antecubital 300 750 Oral 680 60 Output: Urine 350 620 Urine, Voided 350 620 Stool 0 Other: # Bowel Movements 0 - Physical Exam Head: Positive for: Normocephalic, Laceration (3 cm laceration of the left eyebrow. Sutured. No active bleed). Negative for: Atraumatic Pupils: Positive for: PERRL Extroacular Muscles: Positive for: EOMI Conjunctiva: Positive for: Normal Ears: Positive for: NORMAL TM, Normal Canal, Other (No hernadez sign). Negative for: Erythema, TM Bulging Mouth: Positive for: Moist Mucous Membranes. Negative for: Normal Lips (Superficial laceration of left lower lip. does not require intervention.) Pharnyx: Negative for: ERYTHEMA, EXUDATE, TONSILS ENLARGED Neck: Positive for: Normal Range of Motion Respiratory/Chest: Positive for: Clear to Auscultation, Good Air Exchange. Negative for: Respiratory Distress, Accessory Muscle Use Cardiovascular: Positive for: Regular Rate and Rhythm, Normal S1, S2. Negative for: Murmurs Abdomen: Negative for: Tenderness, Distention, Peritoneal Signs Back: Positive for: Normal Inspection Upper Extremity: Positive for: Normal Inspection. Negative for: Cyanosis, Edema Lower Extremity: Positive for: Normal Inspection. Negative for: Edema Neurological: Positive for: GCS=15, CN II-XII Intact, Speech Normal, Motor Func Grossly Intact, Normal Sensory Function, Normal Cerebellar Funct Skin: Positive for: Warm, Dry, Normal Color. Negative for: Rashes Psychiatric: Positive for: Alert, Oriented x 3, Normal Insight, Normal Concentration - Medications Active Medications: Active Medications Generic Name Dose Route Start Last Admin Trade Name Freq PRN Reason Stop Dose Admin Acetaminophen 650 mg 06/22/18 16:01 06/22/18 21:04 Tylenol 325mg Tab PO 650 mg Q6H PRN Administration Fever >100.4 F Atorvastatin Calcium 10 mg 06/22/18 16:00 06/22/18 17:42 Lipitor PO 10 mg DAILY SHAWN Administration - Patient Studies Lab Studies: Lab Studies 06/23/18 06/22/18 06/22/18 Range/Units 05:25 17:10 13:30 WBC 11.5 H (4.5-11.0) 10^3/uL RBC 4.34 (3.5-6.1) 10^6/uL Hgb 13.2 L (14.0-18.0) g/dL Hct 40.3 L (42.0-52.0) % MCV 92.9 (80.0-105.0) fl MCH 30.4 (25.0-35.0) pg MCHC 32.8 (31.0-37.0) g/dl RDW 13.5 (11.5-14.5) % Plt Count 270 (120.0-450.0) 10^3/uL MPV 9.2 (7.0-11.0) fl Gran % 75.7 H (50.0-68.0) % Lymph % (Auto) 13.9 L (22.0-35.0) % Ray % (Auto) 10.2 H (1.0-6.0) % Eos % (Auto) 0.1 L (1.5-5.0) % Baso % (Auto) 0.1 (0.0-3.0) % Gran # 8.72 H (1.4-6.5) Lymph # (Auto) 1.6 (1.2-3.4) Ray # (Auto) 1.2 H (0.1-0.6) Eos # (Auto) 0.0 (0.0-0.7) Baso # (Auto) 0.01 (0.0-2.0) K/mm3 PT (9.4-12.5) SECONDS INR APTT (25.1-36.5) Seconds Sodium (132-148) mmol/L Potassium (3.6-5.0) mmol/L Chloride (98-107) mmol/L Carbon Dioxide (21-33) mmol/L Anion Gap (10-20) BUN (7-21) mg/dL Creatinine (0.8-1.5) mg/dl Est GFR ( Amer) Est GFR (Non-Af Amer) Random Glucose (70-110) mg/dL Calcium (8.4-10.5) mg/dL Phosphorus (2.5-4.5) mg/dL Magnesium (1.7-2.2) mg/dL Total Bilirubin (0.2-1.3) mg/dL AST (17-59) U/L ALT (7-56) U/L Alkaline Phosphatase (38-126) U/L Lactate Dehydrogenase (333-699) U/L Total Creatine Kinase (35-230) U/L CK-MB (CK-2) (0.0-3.6) ng/mL CK-MB (CK-2) % Troponin I < 0.01 ng/mL Total Protein (5.8-8.3) g/dL Albumin (3.0-4.8) g/dL Globulin gm/dL Albumin/Globulin Ratio (1.1-1.8) Urine Color Yellow (YELLOW) Urine Appearance Clear (CLEAR) Urine pH 6.0 (4.7-8.0) Ur Specific [place] >= 1.030 (1.005-1.035) Urine Protein Trace H (<30 mg/dL) mg/dL Urine Glucose (UA) Negative (NEGATIVE) mg/dL Urine Ketones 40 H (NEGATIVE) mg/dL Urine Blood Moderate H (NEGATIVE) Urine Nitrate Negative (NEGATIVE) Urine Bilirubin Negative (NEGATIVE) Urine Urobilinogen 0.2 (<1 E.U./dL) E.U./dL Ur Leukocyte Esterase Negative (NEGATIVE) Velia/uL Urine RBC 20 - 25 H (0-2) /hpf Urine WBC 1 - 3 (0-6) /hpf Ur Epithelial Cells None (0-5) /hpf Amorphous Sediment Few (NONE) /hpf Urine Bacteria Many (NONE) /hpf Hyaline Casts 0 - 2 (NONE) /hpf Coarse Granular Casts Trace (NONE) /hpf 06/22/18 06/22/18 06/22/18 Range/Units 09:40 09:40 09:40 WBC 12.7 H (4.5-11.0) 10^3/uL RBC 4.18 (3.5-6.1) 10^6/uL Hgb 12.9 L (14.0-18.0) g/dL Hct 38.6 L (42.0-52.0) % MCV 92.3 (80.0-105.0) fl MCH 30.9 (25.0-35.0) pg MCHC 33.4 (31.0-37.0) g/dl RDW 13.5 (11.5-14.5) % Plt Count 282 (120.0-450.0) 10^3/uL MPV 9.4 (7.0-11.0) fl Gran % 78.8 H (50.0-68.0) % Lymph % (Auto) 9.6 L (22.0-35.0) % Ray % (Auto) 11.1 H (1.0-6.0) % Eos % (Auto) 0.3 L (1.5-5.0) % Baso % (Auto) 0.2 (0.0-3.0) % Gran # 10.04 H (1.4-6.5) Lymph # (Auto) 1.2 (1.2-3.4) Ray # (Auto) 1.4 H (0.1-0.6) Eos # (Auto) 0.0 (0.0-0.7) Baso # (Auto) 0.02 (0.0-2.0) K/mm3 PT 14.1 H (9.4-12.5) SECONDS INR 1.22 APTT 29.3 (25.1-36.5) Seconds Sodium 137 (132-148) mmol/L Potassium 3.8 (3.6-5.0) mmol/L Chloride 101 (98-107) mmol/L Carbon Dioxide 27 (21-33) mmol/L Anion Gap 13 (10-20) BUN 16 (7-21) mg/dL Creatinine 0.8 (0.8-1.5) mg/dl Est GFR ( Amer) > 60 Est GFR (Non-Af Amer) > 60 Random Glucose 126 H (70-110) mg/dL Calcium 9.0 (8.4-10.5) mg/dL Phosphorus 2.6 (2.5-4.5) mg/dL Magnesium 2.2 (1.7-2.2) mg/dL Total Bilirubin 0.6 (0.2-1.3) mg/dL AST 52 (17-59) U/L ALT 29 (7-56) U/L Alkaline Phosphatase 85 (38-126) U/L Lactate Dehydrogenase 582 (333-699) U/L Total Creatine Kinase 759 H (35-230) U/L CK-MB (CK-2) 2.8 (0.0-3.6) ng/mL CK-MB (CK-2) % Cancelled Troponin I < 0.01 ng/mL Total Protein 8.0 (5.8-8.3) g/dL Albumin 4.4 (3.0-4.8) g/dL Globulin 3.6 gm/dL Albumin/Globulin Ratio 1.2 (1.1-1.8) Urine Color (YELLOW) Urine Appearance (CLEAR) Urine pH (4.7-8.0) Ur Specific [place] (1.005-1.035) Urine Protein (<30 mg/dL) mg/dL Urine Glucose (UA) (NEGATIVE) mg/dL Urine Ketones (NEGATIVE) mg/dL Urine Blood (NEGATIVE) Urine Nitrate (NEGATIVE) Urine Bilirubin (NEGATIVE) Urine Urobilinogen (<1 E.U./dL) E.U./dL Ur Leukocyte Esterase (NEGATIVE) Velia/uL Urine RBC (0-2) /hpf Urine WBC (0-6) /hpf Ur Epithelial Cells (0-5) /hpf Amorphous Sediment (NONE) /hpf Urine Bacteria (NONE) /hpf Hyaline Casts (NONE) /hpf Coarse Granular Casts (NONE) /hpf Laboratory Results - last 24 hr 06/22/18 06/22/18 06/22/18 09:40 09:40 09:40 WBC 12.7 H RBC 4.18 Hgb 12.9 L Hct 38.6 L MCV 92.3 MCH 30.9 MCHC 33.4 RDW 13.5 Plt Count 282 MPV 9.4 Gran % 78.8 H Lymph % (Auto) 9.6 L Ray % (Auto) 11.1 H Eos % (Auto) 0.3 L Baso % (Auto) 0.2 Gran # 10.04 H Lymph # (Auto) 1.2 Ray # (Auto) 1.4 H Eos # (Auto) 0.0 Baso # (Auto) 0.02 PT 14.1 H INR 1.22 APTT 29.3 Sodium 137 Potassium 3.8 Chloride 101 Carbon Dioxide 27 Anion Gap 13 BUN 16 Creatinine 0.8 Est GFR ( Amer) > 60 Est GFR (Non-Af Amer) > 60 Random Glucose 126 H Calcium 9.0 Phosphorus 2.6 Magnesium 2.2 Total Bilirubin 0.6 AST 52 ALT 29 Alkaline Phosphatase 85 Lactate Dehydrogenase 582 Total Creatine Kinase 759 H CK-MB (CK-2) 2.8 CK-MB (CK-2) % Cancelled Troponin I < 0.01 Total Protein 8.0 Albumin 4.4 Globulin 3.6 Albumin/Globulin Ratio 1.2 Urine Color Urine Appearance Urine pH Ur Specific [place] Urine Protein Urine Glucose (UA) Urine Ketones Urine Blood Urine Nitrate Urine Bilirubin Urine Urobilinogen Ur Leukocyte Esterase Urine RBC Urine WBC Ur Epithelial Cells Amorphous Sediment Urine Bacteria Hyaline Casts Coarse Granular Casts 06/22/18 06/22/18 06/23/18 13:30 17:10 05:25 WBC 11.5 H RBC 4.34 Hgb 13.2 L Hct 40.3 L MCV 92.9 MCH 30.4 MCHC 32.8 RDW 13.5 Plt Count 270 MPV 9.2 Gran % 75.7 H Lymph % (Auto) 13.9 L Ray % (Auto) 10.2 H Eos % (Auto) 0.1 L Baso % (Auto) 0.1 Gran # 8.72 H Lymph # (Auto) 1.6 Ray # (Auto) 1.2 H Eos # (Auto) 0.0 Baso # (Auto) 0.01 PT INR APTT Sodium Potassium Chloride Carbon Dioxide Anion Gap BUN Creatinine Est GFR ( Amer) Est GFR (Non-Af Amer) Random Glucose Calcium Phosphorus Magnesium Total Bilirubin AST ALT Alkaline Phosphatase Lactate Dehydrogenase Total Creatine Kinase CK-MB (CK-2) CK-MB (CK-2) % Troponin I < 0.01 Total Protein Albumin Globulin Albumin/Globulin Ratio Urine Color Yellow Urine Appearance Clear Urine pH 6.0 Ur Specific [place] >= 1.030 Urine Protein Trace H Urine Glucose (UA) Negative Urine Ketones 40 H Urine Blood Moderate H Urine Nitrate Negative Urine Bilirubin Negative Urine Urobilinogen 0.2 Ur Leukocyte Esterase Negative Urine RBC 20 - 25 H Urine WBC 1 - 3 Ur Epithelial Cells None Amorphous Sediment Few Urine Bacteria Many Hyaline Casts 0 - 2 Coarse Granular Casts Trace Radiology Impressions: Radiology Impressions Chest X-Ray 06/22/18 09:20 IMPRESSION: No active disease. Head CT 06/22/18 09:20 IMPRESSION: There is a small amount of subarachnoid blood in the precentral sulcus over the left posterior frontal convexity. EKG/Cardiology Studies: Cardiology / EKG Studies 06/22/18 09:20 ELECTROCARDIOGRAM Stat Comment: Reason For Exam: syncope Fingerstick Blood Sugar Results: 118 Review of Systems - Review of Systems Review of Systems: 12 point ROS completed and negative except as described in HPI. Critical Care Progress Note - Nutrition Nutrition: Nutrition Category Date Time Status Liquid Diet [DIET] Diets 06/22/18 Lunch Ordered Assessment/Plan - Assessment and Plan (Free Text) Assessment: Mr. Bruno is a 67 M with no significant past medical history who presents after a syncopal episode, found to have small subarachnoid hemmorhage. Patient is under ICU care for monitoring. Patient to be downgraded today. Neuro: - 06/22/18 CT head - There is a small amount of subarachnoid blood in the precentral sulcus over the left posterior frontal convexity. - Neurosurg consult - Dr. Clark - repeat CT head in AM 06/23/[address] Ace - Neurology consulted - Dr. Zuleyka Castellano - recs appreciated - AAOx3, no FND, moving extremities past midline. - Monitor neuro status. Neurochecks. - Reorient patient as necessary. - PT recs Cardio: - F/U Carotid duplex - F/U Echo - RRR, normotensive, no signs of HD compromise - Maintain MAP>65. - Monitor for S/S, HD compromise. Pulm: - No signs of respiratory distress. CTA B/L - Patient is sating well on room air. - Maintain O2 saturation>92%. - O2 NC PRN - 06/22/18 CXR: No active disease - Elevate bed to 30 degrees GI: -Tolerating diet well. /Nephro: -BUN/Cr stable -UA neg -Good urine output -Continue monitoring. -Replete electrolytes as needed. -Maintain euvolemia. Endocrinology: -Random glucose: 126, 105 -Maintain euglycemia. Heme/Onc: -H/H stable at 13.2 -No signs of HD compromise. -Continue monitoring H/H ID: -Afebrile, no leukocytosis -Monitor for signs and symptoms of infection. DVT prophylaxis: SCDs Patient seen, case reviewed and plan approved by Dr. Ospina. Anthony Jesus, PGY-1
[2018-06-23 07:39] LABS: ALB/GLOB RATIO 1.1 (1.1-1.8); ALBUMIN 4.2 g/dL (3.0-4.8); ALT/SGPT 38 U/L (7-56); AST/SGOT 50 U/L (17-59); BLOOD UREA NITROGEN 11 mg/dL (7-21); CALCIUM 8.8 mg/dL (8.4-10.5); GFR NON-AFRICAN AMERICAN > 60
[2018-06-23 07:55] LABS: FREE T4 0.96 ng/dL (0.78-2.19)
--- NOTE | 2018-06-23 10:14 | CP.PCM.PN ---
Subjective - Date & Time of Evaluation Date of Evaluation: 06/23/18 Time of Evaluation: 10:13 - Subjective Subjective: reviewed repeat CT I do not see any blood cleared to be d/c home Objective - Vital Signs/Intake and Output Vital Signs (last 24 hours): Temp Pulse Resp BP Pulse Ox 99 F 85 34 H 152/80 H 99 06/22/18 16:00 06/23/18 06:40 06/23/18 06:40 06/23/18 06:00 06/23/18 06:40 Intake and Output: 06/23/18 06/23/18 06:59 18:59 Intake Total 810 Output Total 620 Balance 190 - Medications Medications: Current Medications Acetaminophen (Tylenol 325mg Tab) 650 mg PO Q6H PRN PRN Reason: Fever >100.4 F Last Admin: 06/22/18 21:04 Dose: 650 mg Atorvastatin Calcium (Lipitor) 10 mg PO DAILY SAHWN Last Admin: 06/23/18 09:48 Dose: 10 mg - Labs Labs: 06/23/18 05:25 06/23/18 05:25 PT 14.1 SECONDS (9.4-12.5) H 06/22/18 09:40 INR 1.22 06/22/18 09:40 APTT 29.3 Seconds (25.1-36.5) 06/22/18 09:40
--- NOTE | 2018-06-23 10:39 | CP.CCUPN ---
<Anthony Jesus - Last Filed: 06/23/18 10:40> CCU Subjective - Physician Review Subjective (Free Text): Anthony Jesus PGY-1 Progress Note for ICU Patient seen and evaluated at bedside. No acute events reported overnight. Left eyebrow sutured and lip bruise without active bleed. Reports mild blurry vision on L side but denies chest pain, palpitations, shortness of breath, headaches, numbness, tingling, fevers, chills. CCU Objective - Vital Signs / Intake & Output Vital Signs (Last 4 hours): Vital Signs Pulse Resp Pulse Ox 06/23/18 06:40 85 34 H 99 Intake and Output (Last 8hrs): Intake & Output 06/22/18 06/23/18 06/23/18 22:59 06:59 14:59 Intake Total 980 810 Output Total 350 620 Balance 630 190 Weight 73.936 kg Intake: IV 300 750 Right Antecubital 300 750 Oral 680 60 Output: Urine 350 620 Urine, Voided 350 620 Stool 0 Other: # Bowel Movements 0 - Physical Exam Head: Positive for: Normocephalic, Laceration (3 cm laceration of the left eyebrow. Sutured. No active bleed). Negative for: Atraumatic Pupils: Positive for: PERRL Extroacular Muscles: Positive for: EOMI Conjunctiva: Positive for: Normal Ears: Positive for: NORMAL TM, Normal Canal, Other (No hernadez sign). Negative for: Erythema, TM Bulging Mouth: Positive for: Moist Mucous Membranes. Negative for: Normal Lips (Superficial laceration of left lower lip. does not require intervention.) Pharnyx: Negative for: ERYTHEMA, EXUDATE, TONSILS ENLARGED Neck: Positive for: Normal Range of Motion Respiratory/Chest: Positive for: Clear to Auscultation, Good Air Exchange. Negative for: Respiratory Distress, Accessory Muscle Use Cardiovascular: Positive for: Regular Rate and Rhythm, Normal S1, S2. Negative for: Murmurs Abdomen: Negative for: Tenderness, Distention, Peritoneal Signs Back: Positive for: Normal Inspection Upper Extremity: Positive for: Normal Inspection. Negative for: Cyanosis, Edema Lower Extremity: Positive for: Normal Inspection. Negative for: Edema Neurological: Positive for: GCS=15, CN II-XII Intact, Speech Normal, Motor Func Grossly Intact, Normal Sensory Function, Normal Cerebellar Funct Skin: Positive for: Warm, Dry, Normal Color. Negative for: Rashes Psychiatric: Positive for: Alert, Oriented x 3, Normal Insight, Normal Concentration - Medications Active Medications: Active Medications Generic Name Dose Route Start Last Admin Trade Name Freq PRN Reason Stop Dose Admin Acetaminophen 650 mg 06/22/18 16:01 06/22/18 21:04 Tylenol 325mg Tab PO 650 mg Q6H PRN Administration Fever >100.4 F Atorvastatin Calcium 10 mg 06/22/18 16:00 06/23/18 09:48 Lipitor PO 10 mg DAILY SHAWN Administration - Patient Studies Lab Studies: Lab Studies 06/23/18 06/23/18 06/23/18 Range/Units 05:25 05:25 05:25 WBC 11.5 H (4.5-11.0) 10^3/uL RBC 4.34 (3.5-6.1) 10^6/uL Hgb 13.2 L (14.0-18.0) g/dL Hct 40.3 L (42.0-52.0) % MCV 92.9 (80.0-105.0) fl MCH 30.4 (25.0-35.0) pg MCHC 32.8 (31.0-37.0) g/dl RDW 13.5 (11.5-14.5) % Plt Count 270 (120.0-450.0) 10^3/uL MPV 9.2 (7.0-11.0) fl Gran % 75.7 H (50.0-68.0) % Lymph % (Auto) 13.9 L (22.0-35.0) % [place] % (Auto) 10.2 H (1.0-6.0) % Eos % (Auto) 0.1 L (1.5-5.0) % Baso % (Auto) 0.1 (0.0-3.0) % Gran # 8.72 H (1.4-6.5) Lymph # (Auto) 1.6 (1.2-3.4) [place] # (Auto) 1.2 H (0.1-0.6) Eos # (Auto) 0.0 (0.0-0.7) Baso # (Auto) 0.01 (0.0-2.0) K/mm3 PT (9.4-12.5) SECONDS INR APTT (25.1-36.5) Seconds Sodium 139 (132-148) mmol/L Potassium 4.2 (3.6-5.0) mmol/L Chloride 104 (98-107) mmol/L Carbon Dioxide 26 (21-33) mmol/L Anion Gap 13 (10-20) BUN 11 (7-21) mg/dL Creatinine 0.6 L (0.8-1.5) mg/dl Est GFR ( Amer) > 60 Est GFR (Non-Af Amer) > 60 Random Glucose 105 (70-110) mg/dL Calcium 8.8 (8.4-10.5) mg/dL Total Bilirubin 0.7 (0.2-1.3) mg/dL AST 50 (17-59) U/L ALT 38 (7-56) U/L Alkaline Phosphatase 74 (38-126) U/L CK-MB (CK-2) (0.0-3.6) ng/mL CK-MB (CK-2) % Troponin I ng/mL Total Protein 7.9 (5.8-8.3) g/dL Albumin 4.2 (3.0-4.8) g/dL Globulin 3.7 gm/dL Albumin/Globulin Ratio 1.1 (1.1-1.8) Free T4 0.96 (0.78-2.19) ng/dL TSH 3rd Generation 1.15 (0.46-4.68) mIU/mL Urine Color (YELLOW) Urine Appearance (CLEAR) Urine pH (4.7-8.0) Ur Specific [place] (1.005-1.035) Urine Protein (<30 mg/dL) mg/dL Urine Glucose (UA) (NEGATIVE) mg/dL Urine Ketones (NEGATIVE) mg/dL Urine Blood (NEGATIVE) Urine Nitrate (NEGATIVE) Urine Bilirubin (NEGATIVE) Urine Urobilinogen (<1 E.U./dL) E.U./dL Ur Leukocyte Esterase (NEGATIVE) Velia/uL Urine RBC (0-2) /hpf Urine WBC (0-6) /hpf Ur Epithelial Cells (0-5) /hpf Amorphous Sediment (NONE) /hpf Urine Bacteria (NONE) /hpf Hyaline Casts (NONE) /hpf Coarse Granular Casts (NONE) /hpf 06/22/18 06/22/18 06/22/18 Range/Units 17:10 13:30 09:40 WBC (4.5-11.0) 10^3/uL RBC (3.5-6.1) 10^6/uL Hgb (14.0-18.0) g/dL Hct (42.0-52.0) % MCV (80.0-105.0) fl MCH (25.0-35.0) pg MCHC (31.0-37.0) g/dl RDW (11.5-14.5) % Plt Count (120.0-450.0) 10^3/uL MPV (7.0-11.0) fl Gran % (50.0-68.0) % Lymph % (Auto) (22.0-35.0) % [place] % (Auto) (1.0-6.0) % Eos % (Auto) (1.5-5.0) % Baso % (Auto) (0.0-3.0) % Gran # (1.4-6.5) Lymph # (Auto) (1.2-3.4) [place] # (Auto) (0.1-0.6) Eos # (Auto) (0.0-0.7) Baso # (Auto) (0.0-2.0) K/mm3 PT 14.1 H (9.4-12.5) SECONDS INR 1.22 APTT 29.3 (25.1-36.5) Seconds Sodium (132-148) mmol/L Potassium (3.6-5.0) mmol/L Chloride (98-107) mmol/L Carbon Dioxide (21-33) mmol/L Anion Gap (10-20) BUN (7-21) mg/dL Creatinine (0.8-1.5) mg/dl Est GFR ( Amer) Est GFR (Non-Af Amer) Random Glucose (70-110) mg/dL Calcium (8.4-10.5) mg/dL Total Bilirubin (0.2-1.3) mg/dL AST (17-59) U/L ALT (7-56) U/L Alkaline Phosphatase (38-126) U/L CK-MB (CK-2) (0.0-3.6) ng/mL CK-MB (CK-2) % Troponin I < 0.01 ng/mL Total Protein (5.8-8.3) g/dL Albumin (3.0-4.8) g/dL Globulin gm/dL Albumin/Globulin Ratio (1.1-1.8) Free T4 (0.78-2.19) ng/dL TSH 3rd Generation (0.46-4.68) mIU/mL Urine Color Yellow (YELLOW) Urine Appearance Clear (CLEAR) Urine pH 6.0 (4.7-8.0) Ur Specific [place] >= 1.030 (1.005-1.035) Urine Protein Trace H (<30 mg/dL) mg/dL Urine Glucose (UA) Negative (NEGATIVE) mg/dL Urine Ketones 40 H (NEGATIVE) mg/dL Urine Blood Moderate H (NEGATIVE) Urine Nitrate Negative (NEGATIVE) Urine Bilirubin Negative (NEGATIVE) Urine Urobilinogen 0.2 (<1 E.U./dL) E.U./dL Ur Leukocyte Esterase Negative (NEGATIVE) Velia/uL Urine RBC 20 - 25 H (0-2) /hpf Urine WBC 1 - 3 (0-6) /hpf Ur Epithelial Cells None (0-5) /hpf Amorphous Sediment Few (NONE) /hpf Urine Bacteria Many (NONE) /hpf Hyaline Casts 0 - 2 (NONE) /hpf Coarse Granular Casts Trace (NONE) /hpf 06/22/18 Range/Units 09:40 WBC (4.5-11.0) 10^3/uL RBC (3.5-6.1) 10^6/uL Hgb (14.0-18.0) g/dL Hct (42.0-52.0) % MCV (80.0-105.0) fl MCH (25.0-35.0) pg MCHC (31.0-37.0) g/dl RDW (11.5-14.5) % Plt Count (120.0-450.0) 10^3/uL MPV (7.0-11.0) fl Gran % (50.0-68.0) % Lymph % (Auto) (22.0-35.0) % [place] % (Auto) (1.0-6.0) % Eos % (Auto) (1.5-5.0) % Baso % (Auto) (0.0-3.0) % Gran # (1.4-6.5) Lymph # (Auto) (1.2-3.4) [place] # (Auto) (0.1-0.6) Eos # (Auto) (0.0-0.7) Baso # (Auto) (0.0-2.0) K/mm3 PT (9.4-12.5) SECONDS INR APTT (25.1-36.5) Seconds Sodium (132-148) mmol/L Potassium (3.6-5.0) mmol/L Chloride (98-107) mmol/L Carbon Dioxide (21-33) mmol/L Anion Gap (10-20) BUN (7-21) mg/dL Creatinine (0.8-1.5) mg/dl Est GFR ( Amer) Est GFR (Non-Af Amer) Random Glucose (70-110) mg/dL Calcium (8.4-10.5) mg/dL Total Bilirubin (0.2-1.3) mg/dL AST (17-59) U/L ALT (7-56) U/L Alkaline Phosphatase (38-126) U/L CK-MB (CK-2) 2.8 (0.0-3.6) ng/mL CK-MB (CK-2) % Cancelled Troponin I ng/mL Total Protein (5.8-8.3) g/dL Albumin (3.0-4.8) g/dL Globulin gm/dL Albumin/Globulin Ratio (1.1-1.8) Free T4 (0.78-2.19) ng/dL TSH 3rd Generation (0.46-4.68) mIU/mL Urine Color (YELLOW) Urine Appearance (CLEAR) Urine pH (4.7-8.0) Ur Specific [place] (1.005-1.035) Urine Protein (<30 mg/dL) mg/dL Urine Glucose (UA) (NEGATIVE) mg/dL Urine Ketones (NEGATIVE) mg/dL Urine Blood (NEGATIVE) Urine Nitrate (NEGATIVE) Urine Bilirubin (NEGATIVE) Urine Urobilinogen (<1 E.U./dL) E.U./dL Ur Leukocyte Esterase (NEGATIVE) Velia/uL Urine RBC (0-2) /hpf Urine WBC (0-6) /hpf Ur Epithelial Cells (0-5) /hpf Amorphous Sediment (NONE) /hpf Urine Bacteria (NONE) /hpf Hyaline Casts (NONE) /hpf Coarse Granular Casts (NONE) /hpf Laboratory Results - last 24 hr 06/22/18 06/22/18 06/22/18 09:40 09:40 13:30 WBC RBC Hgb Hct MCV MCH MCHC RDW Plt Count MPV Gran % Lymph % (Auto) [place] % (Auto) Eos % (Auto) Baso % (Auto) Gran # Lymph # (Auto) [place] # (Auto) Eos # (Auto) Baso # (Auto) PT 14.1 H INR 1.22 APTT 29.3 Sodium Potassium Chloride Carbon Dioxide Anion Gap BUN Creatinine Est GFR ( Amer) Est GFR (Non-Af Amer) Random Glucose Calcium Total Bilirubin AST ALT Alkaline Phosphatase CK-MB (CK-2) 2.8 CK-MB (CK-2) % Cancelled Troponin I Total Protein Albumin Globulin Albumin/Globulin Ratio Free T4 TSH 3rd Generation Urine Color Yellow Urine Appearance Clear Urine pH 6.0 Ur Specific [place] >= 1.030 Urine Protein Trace H Urine Glucose (UA) Negative Urine Ketones 40 H Urine Blood Moderate H Urine Nitrate Negative Urine Bilirubin Negative Urine Urobilinogen 0.2 Ur Leukocyte Esterase Negative Urine RBC 20 - 25 H Urine WBC 1 - 3 Ur Epithelial Cells None Amorphous Sediment Few Urine Bacteria Many Hyaline Casts 0 - 2 Coarse Granular Casts Trace 06/22/18 06/23/18 06/23/18 17:10 05:25 05:25 WBC 11.5 H RBC 4.34 Hgb 13.2 L Hct 40.3 L MCV 92.9 MCH 30.4 MCHC 32.8 RDW 13.5 Plt Count 270 MPV 9.2 Gran % 75.7 H Lymph % (Auto) 13.9 L [place] % (Auto) 10.2 H Eos % (Auto) 0.1 L Baso % (Auto) 0.1 Gran # 8.72 H Lymph # (Auto) 1.6 [place] # (Auto) 1.2 H Eos # (Auto) 0.0 Baso # (Auto) 0.01 PT INR APTT Sodium 139 Potassium 4.2 Chloride 104 Carbon Dioxide 26 Anion Gap 13 BUN 11 Creatinine 0.6 L Est GFR ( Amer) > 60 Est GFR (Non-Af Amer) > 60 Random Glucose 105 Calcium 8.8 Total Bilirubin 0.7 AST 50 ALT 38 Alkaline Phosphatase 74 CK-MB (CK-2) CK-MB (CK-2) % Troponin I < 0.01 Total Protein 7.9 Albumin 4.2 Globulin 3.7 Albumin/Globulin Ratio 1.1 Free T4 TSH 3rd Generation Urine Color Urine Appearance Urine pH Ur Specific [place] Urine Protein Urine Glucose (UA) Urine Ketones Urine Blood Urine Nitrate Urine Bilirubin Urine Urobilinogen Ur Leukocyte Esterase Urine RBC Urine WBC Ur Epithelial Cells Amorphous Sediment Urine Bacteria Hyaline Casts Coarse Granular Casts 06/23/18 05:25 WBC RBC Hgb Hct MCV MCH MCHC RDW Plt Count MPV Gran % Lymph % (Auto) [place] % (Auto) Eos % (Auto) Baso % (Auto) Gran # Lymph # (Auto) [place] # (Auto) Eos # (Auto) Baso # (Auto) PT INR APTT Sodium Potassium Chloride Carbon Dioxide Anion Gap BUN Creatinine Est GFR ( Amer) Est GFR (Non-Af Amer) Random Glucose Calcium Total Bilirubin AST ALT Alkaline Phosphatase CK-MB (CK-2) CK-MB (CK-2) % Troponin I Total Protein Albumin Globulin Albumin/Globulin Ratio Free T4 0.96 TSH 3rd Generation 1.15 Urine Color Urine Appearance Urine pH Ur Specific [place] Urine Protein Urine Glucose (UA) Urine Ketones Urine Blood Urine Nitrate Urine Bilirubin Urine Urobilinogen Ur Leukocyte Esterase Urine RBC Urine WBC Ur Epithelial Cells Amorphous Sediment Urine Bacteria Hyaline Casts Coarse Granular Casts Radiology Impressions: Radiology Impressions Chest X-Ray 06/22/18 09:20 IMPRESSION: No active disease. Head CT 06/22/18 09:20 IMPRESSION: There is a small amount of subarachnoid blood in the precentral sulcus over the left posterior frontal convexity. Fingerstick Blood Sugar Results: 118 Review of Systems - Review of Systems Review of Systems: 12 point ROS completed and negative except as described in HPI. Critical Care Progress Note - Nutrition Nutrition: Nutrition Category Date Time Status Heart Healthy Diet [DIET] Diets 06/23/18 Breakfast Active Assessment/Plan - Assessment and Plan (Free Text) Assessment: Mr. Bruno is a 67 M with no significant past medical history who presents after a syncopal episode, found to have small subarachnoid hemmorhage. Patient is under ICU care for monitoring. Patient to be downgraded today. Neuro: - 06/22/18 CT head - There is a small amount of subarachnoid blood in the precentral sulcus over the left posterior frontal convexity. - Neurosurg consult - Dr. Clark - repeat CT head in AM 06/23/[address] Ace - Neurology consulted - Dr. Zuleyka Castellano - recs appreciated - AAOx3, no FND, moving extremities past midline. - Monitor neuro status. Neurochecks. - Reorient patient as necessary. - PT recs Cardio: - F/U Carotid duplex - F/U Echo - RRR, normotensive, no signs of HD compromise - Maintain MAP>65. - Monitor for S/S, HD compromise. Pulm: - No signs of respiratory distress. CTA B/L - Patient is sating well on room air. - Maintain O2 saturation>92%. - O2 NC PRN - 06/22/18 CXR: No active disease - Elevate bed to 30 degrees GI: -Tolerating diet well. /Nephro: -BUN/Cr stable -UA neg -Good urine output -Continue monitoring. -Replete electrolytes as needed. -Maintain euvolemia. Endocrinology: -Random glucose: 126, 105 -Maintain euglycemia. Heme/Onc: -H/H stable at 13.2 -No signs of HD compromise. -Continue monitoring H/H ID: -Afebrile, no leukocytosis -Monitor for signs and symptoms of infection. DVT prophylaxis: SCDs Patient seen, case reviewed and plan approved by Dr. Ospina. Anthony Jesus, PGY-1 <Leopoldo Ospina - Last Filed: 06/23/18 15:15> CCU Objective - Vital Signs / Intake & Output Intake and Output (Last 8hrs): Intake & Output 06/23/18 06/23/18 06/23/18 06:59 14:59 22:59 Intake Total 810 Output Total 620 Balance 190 Weight 163 lb Intake: IV 750 Right Antecubital 750 Oral 60 Output: Urine 620 Urine, Voided 620 Other: # Bowel Movements 0 - Medications Active Medications: Active Medications Generic Name Dose Route Start Last Admin Trade Name Freq PRN Reason Stop Dose Admin Acetaminophen 650 mg 06/22/18 16:01 06/22/18 21:04 Tylenol 325mg Tab PO 650 mg Q6H PRN Administration Fever >100.4 F Atorvastatin Calcium 10 mg 06/22/18 16:00 06/23/18 09:48 Lipitor PO 10 mg DAILY SHAWN Administration - Patient Studies Lab Studies: Lab Studies 06/23/18 06/23/18 06/23/18 Range/Units 05:25 05:25 05:25 WBC 11.5 H (4.5-11.0) 10^3/uL RBC 4.34 (3.5-6.1) 10^6/uL Hgb 13.2 L (14.0-18.0) g/dL Hct 40.3 L (42.0-52.0) % MCV 92.9 (80.0-105.0) fl MCH 30.4 (25.0-35.0) pg MCHC 32.8 (31.0-37.0) g/dl RDW 13.5 (11.5-14.5) % Plt Count 270 (120.0-450.0) 10^3/uL MPV 9.2 (7.0-11.0) fl Gran % 75.7 H (50.0-68.0) % Lymph % (Auto) 13.9 L (22.0-35.0) % [place] % (Auto) 10.2 H (1.0-6.0) % Eos % (Auto) 0.1 L (1.5-5.0) % Baso % (Auto) 0.1 (0.0-3.0) % Gran # 8.72 H (1.4-6.5) Lymph # (Auto) 1.6 (1.2-3.4) [place] # (Auto) 1.2 H (0.1-0.6) Eos # (Auto) 0.0 (0.0-0.7) Baso # (Auto) 0.01 (0.0-2.0) K/mm3 Sodium 139 (132-148) mmol/L Potassium 4.2 (3.6-5.0) mmol/L Chloride 104 (98-107) mmol/L Carbon Dioxide 26 (21-33) mmol/L Anion Gap 13 (10-20) BUN 11 (7-21) mg/dL Creatinine 0.6 L (0.8-1.5) mg/dl Est GFR ( Amer) > 60 Est GFR (Non-Af Amer) > 60 Random Glucose 105 (70-110) mg/dL Calcium 8.8 (8.4-10.5) mg/dL Total Bilirubin 0.7 (0.2-1.3) mg/dL AST 50 (17-59) U/L ALT 38 (7-56) U/L Alkaline Phosphatase 74 (38-126) U/L Troponin I ng/mL Total Protein 7.9 (5.8-8.3) g/dL Albumin 4.2 (3.0-4.8) g/dL Globulin 3.7 gm/dL Albumin/Globulin Ratio 1.1 (1.1-1.8) Free T4 0.96 (0.78-2.19) ng/dL TSH 3rd Generation 1.15 (0.46-4.68) mIU/mL 06/22/18 Range/Units 17:10 WBC (4.5-11.0) 10^3/uL RBC (3.5-6.1) 10^6/uL Hgb (14.0-18.0) g/dL Hct (42.0-52.0) % MCV (80.0-105.0) fl MCH (25.0-35.0) pg MCHC (31.0-37.0) g/dl RDW (11.5-14.5) % Plt Count (120.0-450.0) 10^3/uL MPV (7.0-11.0) fl Gran % (50.0-68.0) % Lymph % (Auto) (22.0-35.0) % [place] % (Auto) (1.0-6.0) % Eos % (Auto) (1.5-5.0) % Baso % (Auto) (0.0-3.0) % Gran # (1.4-6.5) Lymph # (Auto) (1.2-3.4) [place] # (Auto) (0.1-0.6) Eos # (Auto) (0.0-0.7) Baso # (Auto) (0.0-2.0) K/mm3 Sodium (132-148) mmol/L Potassium (3.6-5.0) mmol/L Chloride (98-107) mmol/L Carbon Dioxide (21-33) mmol/L Anion Gap (10-20) BUN (7-21) mg/dL Creatinine (0.8-1.5) mg/dl Est GFR ( Amer) Est GFR (Non-Af Amer) Random Glucose (70-110) mg/dL Calcium (8.4-10.5) mg/dL Total Bilirubin (0.2-1.3) mg/dL AST (17-59) U/L ALT (7-56) U/L Alkaline Phosphatase (38-126) U/L Troponin I < 0.01 ng/mL Total Protein (5.8-8.3) g/dL Albumin (3.0-4.8) g/dL Globulin gm/dL Albumin/Globulin Ratio (1.1-1.8) Free T4 (0.78-2.19) ng/dL TSH 3rd Generation (0.46-4.68) mIU/mL Laboratory Results - last 24 hr 06/22/18 06/23/18 06/23/18 17:10 05:25 05:25 WBC 11.5 H RBC 4.34 Hgb 13.2 L Hct 40.3 L MCV 92.9 MCH 30.4 MCHC 32.8 RDW 13.5 Plt Count 270 MPV 9.2 Gran % 75.7 H Lymph % (Auto) 13.9 L [place] % (Auto) 10.2 H Eos % (Auto) 0.1 L Baso % (Auto) 0.1 Gran # 8.72 H Lymph # (Auto) 1.6 [place] # (Auto) 1.2 H Eos # (Auto) 0.0 Baso # (Auto) 0.01 Sodium 139 Potassium 4.2 Chloride 104 Carbon Dioxide 26 Anion Gap 13 BUN 11 Creatinine 0.6 L Est GFR ( Amer) > 60 Est GFR (Non-Af Amer) > 60 Random Glucose 105 Calcium 8.8 Total Bilirubin 0.7 AST 50 ALT 38 Alkaline Phosphatase 74 Troponin I < 0.01 Total Protein 7.9 Albumin 4.2 Globulin 3.7 Albumin/Globulin Ratio 1.1 Free T4 TSH 3rd Generation 06/23/18 05:25 WBC RBC Hgb Hct MCV MCH MCHC RDW Plt Count MPV Gran % Lymph % (Auto) [place] % (Auto) Eos % (Auto) Baso % (Auto) Gran # Lymph # (Auto) [place] # (Auto) Eos # (Auto) Baso # (Auto) Sodium Potassium Chloride Carbon Dioxide Anion Gap BUN Creatinine Est GFR ( Amer) Est GFR (Non-Af Amer) Random Glucose Calcium Total Bilirubin AST ALT Alkaline Phosphatase Troponin I Total Protein Albumin Globulin Albumin/Globulin Ratio Free T4 0.96 TSH 3rd Generation 1.15 Radiology Impressions: Radiology Impressions Head CT 06/23/18 10:00 IMPRESSION: The previous study showed a small amount of subarachnoid hemorrhage in the left precentral gyrus. This finding is no longer seen Critical Care Progress Note - Nutrition Nutrition: Nutrition Category Date Time Status Heart Healthy Diet [DIET] Diets 06/23/18 Breakfast Active Assessment/Plan - Assessment and Plan (Free Text) Assessment: Patient seen and examined on rounds, agree with note with following additions/exceptions: Patient is 67yo male without sig PMhx, admitted with syncope, and what appeared to be initially a small SAH, which on subsequent imaging was not seen. Currently afebrile, BP stable, comfortable in NAD, no focal deficits, AAox3, NAD, doing well Neurosurgery signed off, IVF Reg diet ECHO GI ppx DVT ppx Stable, transfer to med surg
--- NOTE | 2018-06-23 13:01 | CT ---
Date of service: 06/23/2018 PROCEDURE: CT HEAD WITHOUT CONTRAST. HISTORY: LOC COMPARISON: 06/22/2018 TECHNIQUE: Axial computed tomography images were obtained through the head/brain without intravenous contrast. Radiation dose: Total exam DLP = 1097.0 mGy-cm. This CT exam was performed using one or more of the following dose reduction techniques: Automated exposure control, adjustment of the mA and/or kV according to patient size, and/or use of iterative reconstruction technique. FINDINGS: HEMORRHAGE: The previous study showed a small amount of subarachnoid hemorrhage in the left precentral gyrus. This finding is no longer seen BRAIN: No mass effect or edema. No atrophy or chronic microvascular ischemic changes. VENTRICLES: Unremarkable. No hydrocephalus. CALVARIUM: Unremarkable. PARANASAL SINUSES: Unremarkable as visualized. No significant inflammatory changes. MASTOID AIR CELLS: Unremarkable as visualized. No inflammatory changes. OTHER FINDINGS: None. IMPRESSION: The previous study showed a small amount of subarachnoid hemorrhage in the left precentral gyrus. This finding is no longer seen
--- NOTE | 2018-06-23 15:21 | CARD ---
APPROVED REPORT Date of service: 06/23/2018 EXAM: Two-dimensional and M-mode echocardiogram with Doppler and color Doppler. INDICATION DIZZINESS 2D DIMENSIONS Left Atrium (2D)3.1 (1.6-4.0cm)IVSd1.1 (0.7-1.1cm) LVDd4.5 (3.9-5.9cm)PWd0.9 (0.7-1.1cm) LVDs2.9 (2.5-4.0cm)FS (%) 34.4 % LVEF (%)63.6 (>50%) M-Mode DIMENSIONS Aortic Root2.80 (2.2-3.7cm)Aortic Cusp Exc.1.70 (1.5-2.0cm) Aortic Valve AoV Peak Ffqpfzbk409.0cm/Mayra Peak GR.6mmHg Mitral Valve MV E Geogxcho85.7cm/sMV A Qjizvaak580.0cm/sE/A ratio0.7 TDI E/Lateral E'0.0E/Medial E'0.0 Tricuspid Valve TR Peak [id number]/sRAP [id number] Peak Gr.21mmHg [id number] LEFT VENTRICLE The left ventricle is normal size. There is normal left ventricular wall thickness. The left ventricular function is normal. The left ventricular ejection fraction is within the normal range. There is normal LV segmental wall motion. Transmitral Doppler flow pattern is Grade I-abnormal relaxation pattern. RIGHT VENTRICLE The right ventricle is normal size. There is normal right ventricular wall thickness. The right ventricular systolic function is normal. ATRIA The left atrium size is normal. The right atrium size is normal. AORTIC VALVE The aortic valve is not well visualized. No aortic regurgitation is present. There is no aortic valvular stenosis. MITRAL VALVE The mitral valve is normal in structure. There is no mitral valve regurgitation noted. There is no mitral valve stenosis. TRICUSPID VALVE The tricuspid valve is normal in structure. There is trace tricuspid regurgitation. PULMONIC VALVE The pulmonary valve is normal in structure. There is no pulmonic valvular regurgitation. GREAT VESSELS The aortic root is normal in size. The IVC is normal in size and collapses >50% with inspiration. PERICARDIAL EFFUSION There is a trace pericardial effusion. <Conclusion> There is normal left ventricular wall thickness. The left ventricular function is normal. The left ventricular ejection fraction is within the normal range. There is normal LV segmental wall motion. Transmitral Doppler flow pattern is Grade I-abnormal relaxation pattern.
--- NOTE | 2018-06-23 15:41 | PN ---
DATE: 06/23/2018 SUBJECTIVE: The patient has no complaints of any chest pain. No shortness of breath. No dizziness. No diplopia. He says he has no weakness in the arms or in the legs. PHYSICAL EXAMINATION: VITAL SIGNS: Temperature is 99, pulse 85, blood pressure 152/80 and respirations 20. GENERAL: The patient is lying in bed, flat, comfortable. HEENT: No oral lesion. Anicteric sclerae. Moist mucosa. In the left lateral temporal area he has ecchymosis with some mild swelling in the left eye lid. NECK: No JVD, adenopathy, or thyromegaly. CARDIOVASCULAR: S1 and S2, regular. No murmurs, rubs, or gallops. LUNGS: Clear to auscultation bilaterally. No wheeze, rales, or rhonchi. ABDOMEN: Bowel sounds are positive, soft, nontender and nondistended. EXTREMITIES: no cyanosis, clubbing or edema. LABORATORY DATA: White count of 11.5, hemoglobin 13.2, creatinine is 0.6. He has a repeat CT of the head done shows a small amount of subarachnoid hemorrhage in the left precentral gyrus that was seen on the initial, CT is no longer seen. ASSESSMENT: 1. Left subarachnoid hemorrhage. 2. Fall. 3. Dyslipidemia. PLAN: The patient is currently in the ICU. He is feeling well. He does not have any headaches. He is currently on Lipitor for dyslipidemia. He is on Tylenol for pain. He is being followed by neurosurgery Dr. Ace, I appreciate his input, I did review his note. The patient has been cleared for discharge home. He is going to be seen by physical therapy and see if he qualifies for subacute rehab versus Transitional Care Unit. The patient has carotid Doppler pending. He is going to be on a . No surgical intervention at this time. Raúl Coles MD
--- NOTE | 2018-06-23 17:18 | US ---
PROCEDURE: Bilateral carotid artery duplex ultrasound HISTORY: Carotid stenosis PHYSICIAN(S): Frandy Doe MD. TECHNIQUE: Duplex sonography and color-flow Doppler were used to evaluate the carotid bifurcations and limited segments of the vertebral arteries bilaterally. FINDINGS: There is mild smooth hypoechoic plaque noted at the carotid bifurcations bilaterally. The peak systolic velocity in the proximal right internal carotid artery is 101 cm/sec. This corresponds to a 20 to 39% proximal right ICA stenosis. Normal systolic velocities are noted in the proximal right external carotid artery. There is antegrade flow in the right vertebral artery. The peak systolic velocity in the proximal left internal carotid artery is 98 cm/sec. This corresponds to a 20 to 39% proximal left ICA stenosis. Normal systolic velocities are noted in the proximal left external carotid artery. There is antegrade flow in the left vertebral artery. IMPRESSION: 1. Bilateral 20-39% proximal ICA stenoses. 2. Antegrade flow in both vertebral arteries.
--- NOTE | 2018-06-23 17:43 | CON ---
DATE: 06/23/2018 NEUROLOGY CONSULT NOTE CHIEF COMPLAINT: Questionable left paracentral gyrus subarachnoid hemorrhage. CURRENT HISTORY OF PRESENT ILLNESS: This is a 67-year-old man with history of hyperlipidemia, who had a syncopal episode at [employer]. The patient was at [employer] and was reading when he started feeling "flushing and ." Syncopal episodes resulted in the laceration of his upper left eye lid and his lower lip. His initial CAT scan showed a questionable subarachnoid hemorrhage of the left paracentral frontal gyrus, although the repeat CAT scan did not show any blood noted in the ICU or any subarachnoid hemorrhage either. Currently, the patient denies any headache, denies any change in sense of vision, taste, or smell. He is currently stable in terms of his vital signs. Carotid Doppler's done, results pending. He is clinically cleared from Neuro perspective. No focal weakness of the extremities. ALLERGIES: NO KNOWN DRUG ALLERGIES. PAST MEDICAL HISTORY: As above. SOCIAL HISTORY: No illicit drug use, smoking or ETOH abuse. REVIEW OF SYSTEMS: A 14-point review of systems is negative except per the HPI. FAMILY HISTORY: Noncontributory. LABORATORY DATA: Current labs; sodium is 139, potassium 4.2, chloride 104, carbon dioxide 26, BUN 11, creatinine 0.6, random glucose of 105. PHYSICAL EXAMINATION: GENERAL: The patient is sitting up in bed, no acute distress. VITAL SIGNS: Temperature afebrile, pulse rate of 70, blood pressure of 152/80, respiratory rate of 18, and oxygen saturation 99% on room air. HEENT: Atraumatic, normocephalic, but the face was filled with large laceration at the left eye and small laceration at the left side of the lower lip. NECK: Supple. No JVD. No adenopathy noted. LUNGS: Clear to auscultation. No adventitious sounds. HEART: S1 and S2. Normal rate and rhythm. No murmurs, rubs, or gallops. ABDOMEN: Soft, nontender, and nondistended. Bowel sounds are present. EXTREMITIES: No clubbing, no cyanosis. Peripheral pulses 2+ felt bilaterally. NEUROLOGICAL: The patient is alert and oriented to person, place, and month and year. Speech is fluent without errors. Cranial nerves II through XII are intact. Motor exam; moves all extremities. Toes are downgoing bilaterally. Sensory exam; Decreased light touch and pinprick up to the calves bilaterally. Decreased vibration at the toes. DTRs are 2+ throughout and 1 at both knees and ankles. Coordination: [id number] is intact. No dysmetria noted. IMPRESSION: Syncope, most likely vasovagal which resulted in some mild facial lacerations and head trauma. A repeat CT of the head showed no evidence of any subarachnoid hemorrhage. The patient is clinically neurologically stable. RECOMMENDATIONS: 1. At this time, I recommend fluid hydration throughout the day. 2. PT/OT assessment. 3. The patient is quite stable from Neurological standpoint. Gigi Castellano MD
[2018-06-24 06:46] LABS: BASO # 0.01 K/mm3 (0.0-2.0); BASO % 0.1 % (0.0-3.0); EOS % 0.1 % (1.5-5.0); GRAN # 9.28 (1.4-6.5); GRAN % 76.5 % (50.0-68.0); HEMOGLOBIN 13.2 g/dL (14.0-18.0); LYMPH # 1.8 (1.2-3.4); LYMPH % 14.6 % (22.0-35.0); MEAN CORPUSCULAR HEMOGLOBIN 30.5 pg (25.0-35.0); MEAN CORPUSCULAR HGB CONC 33.5 g/dl (31.0-37.0); MEAN PLATELET VOLUME 9.5 fl (7.0-11.0); MONO # 1.1 (0.1-0.6); MONO % 8.7 % (1.0-6.0); RBC 4.33 10^6/uL (3.5-6.1); RED CELL DISTRIBUTION WIDTH 13.2 % (11.5-14.5); WHITE BLOOD COUNT 12.1 10^3/uL (4.5-11.0)
[2018-06-24 07:11] LABS: ALB/GLOB RATIO 1.1 (1.1-1.8); ALBUMIN 4.1 g/dL (3.0-4.8); ALT/SGPT 37 U/L (7-56); AST/SGOT 48 U/L (17-59); BLOOD UREA NITROGEN 12 mg/dL (7-21); GFR NON-AFRICAN AMERICAN > 60
--- NOTE | 2018-06-24 09:47 | CON ---
DATE: 06/24/2018 REQUESTING PHYSICIAN: Dr. Coles. REASON FOR CONSULTATION: Syncope. HISTORY: This is a 67-year-old man with a history of hyperlipidemia, who was admitted after a syncopal event in [employer]. He states that he was not feeling well for several days prior to admission. He was in [employer] the morning of admission and felt weak and lightheaded. He is unaware of any palpitations. He became nauseated and lost consciousness. He struck his forehead on a left turn in the [employer]. He required sutures to close the periorbital laceration. His initial CT of the head suggested possible small subarachnoid hemorrhage. A repeat scan shows resolution of this. He denies any prior history of syncope. He has had no prior cardiac history. He apparently is hypertensive, taking medication at the present time. PAST MEDICAL HISTORY: His past history is notable for the problems mentioned above as well as appendectomy many years ago. MEDICATIONS: Home medications reportedly are Zocor 20 mg daily. ALLERGIES: HIS ALLERGIES ARE NONE. SOCIAL HISTORY: He does not smoke or drink. He lives alone. FAMILY HISTORY: Both parents are from age-related illness. REVIEW OF SYSTEMS: A 10-point review of systems is otherwise unremarkable. PHYSICAL EXAMINATION: GENERAL: He is a middle-aged man, who appears comfortable at rest. VITAL SIGNS: His blood pressure is 156/86 with a pulse of 94 in sinus, respirations are 16. He is afebrile. He reportedly had a temperature of 101.2 overnight however. HEENT: Left periorbital ecchymosis is noted with a closed laceration present. NECK: Supple. No JVD noted. CHEST: Clear to auscultation and percussion. HEART: PMI in normal position. No pathological gallops heard. ABDOMEN: Soft, nontender with no bowel sounds. EXTREMITIES: No clubbing, cyanosis, edema. SKIN: Warm and dry. PSYCHIATRIC: Normal mood and affect. NEUROLOGICAL: Alert and oriented x3. No gross motor or sensory deficits noted. DIAGNOSTIC DATA: Potassium 4.6, BUN and creatinine are 12 and 0.7. White count 12.1, hemoglobin and hematocrit are 13.2 and 39.4, with a platelet count of 285,000. The electrocardiogram reveals sinus rhythm with no significant abnormalities. Chest x-ray reveals normal cardiac silhouette with clear lung mulligan. CT of the head, findings as noted. Carotid ultrasound reveals mild bilateral ICA stenosis. An echocardiogram was relatively unremarkable with normal LV size and systolic function with significant valvular mass. IMPRESSION: 1. Recent syncope with head trauma, likely due to a vasovagal event in the setting of recent illness. 2. Hyperlipidemia. 3. Apparent hypertension. RECOMMENDATIONS: His no further cardiac workup appears necessary at the present time unless he has recurrent syncopal events. Antihypertensive therapy should likely be instituted. Statin therapy should continue. We will be happy to follow along as needed. Costa Frederick MD
--- NOTE | 2018-06-24 13:16 | CP.PCM.APN ---
Subjective - Date & Time of Evaluation Date of Evaluation: 06/24/18 Time of Evaluation: 12:30 - Subjective Subjective: Pt. seen at bedside, sitting up in chair, Denied dizziness, states to having musckuloskeletal chest wall pain, denies shortness of breath, denied palpitations. Has ecchymosis under left eye. Denied headache, denied blurred vision. Review of Systems - Constitutional Constitutional: As Per HPI - EENT Eyes: As Per HPI - Cardiovascular Cardiovascular: Syncope - Respiratory Respiratory: Pain with Coughing - Gastrointestinal Gastrointestinal: As Per HPI - Genitourinary Additional comments: denied dysuria - Integumentary Integumentary: Other Additional comments: ecchymosis under left eye, laceration noted left forehead Objective - Vital Signs/Intake and Output Vital Signs (last 24 hours): Temp Pulse Resp BP Pulse Ox 99.1 F 101 H 26 H 129/65 96 06/24/18 09:00 06/24/18 11:20 06/24/18 11:20 06/24/18 11:00 06/24/18 05:53 Intake and Output: 06/24/18 06/24/18 06:59 18:59 Intake Total 240 Output Total 700 Balance -460 - Medications Medications: Current Medications Acetaminophen (Tylenol 325mg Tab) 650 mg PO Q6H PRN PRN Reason: Fever >100.4 F Last Admin: 06/23/18 22:36 Dose: 650 mg Atorvastatin Calcium (Lipitor) 10 mg PO DIN SHAWN - Labs Labs: 06/24/18 05:30 06/24/18 05:30 PT 14.1 SECONDS (9.4-12.5) H 06/22/18 09:40 INR 1.22 06/22/18 09:40 APTT 29.3 Seconds (25.1-36.5) 06/22/18 09:40 - Head Exam Additional comments: ecchymosis under left eye noted, lac to left forehead noted - Eye Exam Eye Exam: Periorbital swelling - ENT Exam ENT Exam: Mucous Membranes Moist, Normal Exam - Neck Exam Neck Exam: Full ROM, Normal Inspection - Respiratory Exam Respiratory Exam: Clear to Ausculation Bilateral - Cardiovascular Exam Cardiovascular Exam: REGULAR RHYTHM, +S1, +S2 - GI/Abdominal Exam GI & Abdominal Exam: Soft, Normal Bowel Sounds - Rectal Exam Rectal Exam: Deferred - Extremities Exam Extremities Exam: Full ROM, Normal Inspection - Back Exam Back Exam: NORMAL INSPECTION - Neurological Exam Neurological Exam: Alert, Awake, Oriented x3 - Skin Skin Exam: Warm Additional comments: ecchymosis under left eye noted, lac to forehead noted Assessment and Plan - Assessment and Plan (Free Text) Assessment: Radiology Results Chest X-Ray 06/22/18 09:20 IMPRESSION: No active disease. Head CT 06/22/18 09:20 IMPRESSION: There is a small amount of subarachnoid blood in the precentral sulcus over the left posterior frontal convexity. Carotid Artery Ultrasound 06/22/18 15:59 IMPRESSION: 1. Bilateral 20-39% proximal ICA stenoses. 2. Antegrade flow in both vertebral arteries. Head CT 06/23/18 10:00 IMPRESSION: The previous study showed a small amount of subarachnoid hemorrhage in the left precentral gyrus. This finding is no longer seen Echocardiogram with normal results Assessment: 67 year old male w.h Hyperlipidema admitted for further evaluation s/p syncopal episode. Patient reports that he was at [employer] doing a reading when he syncopized, sustaining lacerations to his left eye and left lower lip. Plan: 1. s/p syncopal episode- cardiac work up negative. 2. Subarachnoid hemorrhage, left posterior frontal convexity with repeat Head cT showing resolved hemorrage 3. Htn- Will add Losartan 50 mg daily per cardiology and monitor BP. 4. Pt. deconditioned, PT recommended TCU, eval pending. 5. Leukocytosis, with fever TMax 101.9 06/23, today with low grade -Urine Cx pending, Blood cx pending,
--- NOTE | 2018-06-24 15:00 | PN ---
DATE: 06/24/2018 SUBJECTIVE: The patient has no complaints of any chest pain. No shortness of breath. No headaches. He was able to sleep last night. He says he is feeling better today. PHYSICAL EXAMINATION: VITAL SIGNS: Temperature is 99.1, pulse of 101, blood pressure is 129/65, respiration is 20. GENERAL: The patient is lying in bed, flat, comfortable. HEENT: No oral lesion. Anicteric sclerae. Moist mucosa. NECK: No JVD, adenopathy, or thyromegaly. CARDIOVASCULAR: S1 and S2, regular. No murmurs, rubs, or gallops. LUNGS: Clear to auscultation bilaterally. No wheeze, rales, or rhonchi. ABDOMEN: Bowel sounds are positive, soft, nontender and nondistended. EXTREMITIES: No cyanosis, clubbing or edema. LABORATORY DATA: White count of 12.1, hemoglobin is 13.2, creatinine is 0.7. ASSESSMENT: 1. Left subarachnoid hemorrhage. 2. Fall. 3. Dyslipidemia. 4. Left supraorbital laceration with sutures in place. PLAN: The patient is currently comfortable. He had a fall. He is improving. The patient is on Lipitor for dyslipidemia. He is on Tylenol for pain. The patient is currently comfortable. He will be transferred to the medical floor. I will discontinue telemetry. The patient may need to go to subacute rehab or Transitional Care Unit. He is going to be seen by physical therapy. If he is accepted to transitional care, he may be discharged. He is also being followed by Neurology and Cardiology, I appreciate their input. Raúl Coles MD
--- NOTE | 2018-06-24 16:13 | RAD ---
Date of service: 06/24/2018 HISTORY: leukocytosis, eval infiltrates COMPARISON: 06/22/2018. FINDINGS: LUNGS: The lungs are well inflated and clear. PLEURA: No pleural effusions or pneumothorax. CARDIOVASCULAR: The heart is normal in size. No aortic atherosclerotic calcification present. OSSEOUS STRUCTURES: Within normal limits for the patient's age. VISUALIZED UPPER ABDOMEN: Normal. OTHER FINDINGS: None. IMPRESSION: No active pulmonary disease.
[2018-06-24] MEDS ORDERED: Sodium Chloride 0.9% 1,000 ML IV SCH (18:00)
[2018-06-25 06:47] LABS: BASO # 0.01 K/mm3 (0.0-2.0); BASO % 0.1 % (0.0-3.0); EOS % 0.1 % (1.5-5.0); GRAN # 9.58 (1.4-6.5); GRAN % 76.5 % (50.0-68.0); HEMOGLOBIN 12.6 g/dL (14.0-18.0); LYMPH # 1.8 (1.2-3.4); LYMPH % 14.3 % (22.0-35.0); MEAN CELL VOLUME 90.4 fl (80.0-105.0); MEAN CORPUSCULAR HEMOGLOBIN 30.4 pg (25.0-35.0); MEAN CORPUSCULAR HGB CONC 33.6 g/dl (31.0-37.0); MEAN PLATELET VOLUME 9.4 fl (7.0-11.0); MONO # 1.1 (0.1-0.6); RBC 4.15 10^6/uL (3.5-6.1); RED CELL DISTRIBUTION WIDTH 13.3 % (11.5-14.5); WHITE BLOOD COUNT 12.5 10^3/uL (4.5-11.0)
[2018-06-25 07:21] LABS: ALB/GLOB RATIO 1.1 (1.1-1.8); ALT/SGPT 50 U/L (7-56); AST/SGOT 51 U/L (17-59); BLOOD UREA NITROGEN 13 mg/dL (7-21); CALCIUM 8.9 mg/dL (8.4-10.5); GFR NON-AFRICAN AMERICAN > 60
--- NOTE | 2018-06-25 09:39 | DS ---
HISTORY OF PRESENT ILLNESS: The patient is a 67-year-old male who had come into the hospital after he had a fall, he had a laceration above his left eye. The patient had stitches that were placed. He has no complaints of any headaches or dizziness. He is able to ambulate. He is waiting to go to Transitional Care Unit if he gets accepted. He had a CT done initially that showed a subarachnoid hemorrhage that had improved on second CT that was done 24 hours later. He was seen by Neurosurgery and by Neurology. PHYSICAL EXAMINATION: VITAL SIGNS: Temperature 99.5, pulse of 88, blood pressure is 133/67 and respirations 15. GENERAL: The patient is lying in bed, flat, comfortable. HEENT: No oral lesion. Anicteric sclerae. Moist mucosa. NECK: No JVD, adenopathy, or thyromegaly. CARDIOVASCULAR: S1 and S2, regular. No murmurs, rubs, or gallops. LUNGS: Clear to auscultation bilaterally. No wheeze, rales, or rhonchi. ABDOMEN: Bowel sounds are positive, soft, nontender and nondistended. EXTREMITIES: No cyanosis, clubbing or edema. LABORATORY DATA: White count of 12.5. Chest x-ray done shows no active disease. ASSESSMENT: 1. Left subarachnoid hemorrhage, improving. 2. Fall. 3. Dyslipidemia. 4. Left supraorbital laceration with sutures in place. PLAN: The patient is currently on Cozaar for hypertension. He is going to continue with Lipitor for dyslipidemia. He is on Tylenol for pain. He is seen by physical therapy and it is recommended for the patient to go home with . CONDITION: Stable. ACTIVITIES: Increase as tolerated. Followup with primary care doctor in 1 to 2 weeks. The patient was advised to return to the hospital if symptoms worsened. Raúl Coles MD
--- NOTE | 2018-06-25 11:39 | CP.PCM.PCO ---
Physician Communication Note - Physician Communication Note Physician Communication Note: per MD.advised TCU for patient,pending TCU eval,will follow cx results
[2018-06-25] MEDS ORDERED: cefTRIAXone 1 gm 1 GM/100 ML BAG IVPB SCH (14:15)
[2018-06-25 14:21] VITALS: BP 119/63; PULSE 88; RESP 18; TEMP 102.7; O2SAT 93
== END 2018-06-25 16:31 | DRG 84 ==
LOC: ED 09:02 → ERH 11:05 → ICU 12:07 → 5RNO 06-24 21:56
PROVIDERS: ADMIT Internal Medicine Nephrology; ATTEND Internal Medicine Nephrology
PROC: 0HQ1XZZ Repair Face Skin, External Approach (ICD-10-PCS; principal; 2018-06-22)
PROC: 3E0234Z Introduction of Serum, Toxoid and Vaccine into Muscle, Percutaneous Approach (ICD-10-PCS; 2018-06-22)
DX: S06.6X9A Traumatic subarachnoid hemorrhage with loss of consciousness of unspecified duration, initial encounter (principal); S01.112A Laceration without foreign body of left eyelid and periocular area, initial encounter; J06.9 Acute upper respiratory infection, unspecified; E78.5 Hyperlipidemia, unspecified; W19.XXXA Unspecified fall, initial encounter; Y92.22 Religious institution as the place of occurrence of the external cause; Z23 Encounter for immunization

== ENCOUNTER 2018-06-25 16:38 | Inpatient (IN) | payer OTHER ==
[2018-06-25 16:52] VITALS: BMI 23.5
[2018-06-25] MEDS ORDERED: Pneumococcal 23-Valent Vaccine IM ONE (20:26)
[2018-06-25] MEDS ORDERED: Influenza Vaccine 60 mcg/0.5 mL SYR (4YR UP) IM ONE (20:26)
[2018-06-26] MEDS: cefTRIAXone 1 GM/100 ML BAG IVPB SCH (05:09)
[2018-06-26] MEDS ORDERED: Non Formulary Medication (Ceftriaxone 1 Gm 1 GM) IVPB SCH (06:00)
--- NOTE | 2018-06-26 11:57 | HP ---
DATE OF EXAM: 06/26/2018 CHIEF COMPLAINT AND HISTORY OF PRESENT ILLNESS: This is a 67-year-old male who had initially come in to [facility] after he had a fall. He was found to have a left subarachnoid hemorrhage. Repeat CAT scan that was done showed improvement. He did not require any neurosurgical intervention. He had a laceration above his left eye and that was sutured. He is able to ambulate. He has no complaints of any dizziness. No shortness of breath or headaches. I reviewed the patient's old notes. He was seen by Cardiology and by Neurology, no specific etiology was found. It was thought may be vasovagal. He currently is comfortable. No complaints of any headaches or dizziness. No nausea, no vomiting. No dysuria or frequency. No nocturia. REVIEW OF SYSTEMS: All other review of symptoms are within normal limits except what is mentioned. ALLERGIES: NO ALLERGIES. MEDICATIONS: Zocor. PAST MEDICAL HISTORY: Hypertension. PAST SURGICAL HISTORY: Appendectomy. SOCIAL HISTORY: He does not smoke, drink, or use drugs. FAMILY HISTORY: Noncontributory. PHYSICAL EXAMINATION: VITAL SIGNS: Temperature is 98.5, pulse of 95, blood pressure 119/70, respirations 18, height is 5 feet 10 inches, weight is 165 pounds, BMI is 23.7. GENERAL: The patient is lying in bed, comfortable, and in no acute distress. HEENT: Atraumatic and normocephalic. Anicteric sclerae. Moist mucosa. [place] conjunctivae. No oral lesions. In the left eye, there is ecchymotic the area around the left eye. There is a laceration with sutures in place above the left eye. He has a swelling that has decreased from his admission to the hospital. NECK: No JVD, anterior and posterior adenopathy, thyromegaly, or bruits. CARDIOVASCULAR: S1 and S2 regular. No murmurs, rubs or gallops. LUNGS: Clear to auscultation bilaterally. No wheezes, rales, or rhonchi. ABDOMEN: Bowel sounds are positive. Soft, nontender and nondistended. No hepatosplenomegaly. No rebound and no guarding. EXTREMITIES: No cyanosis, clubbing, or edema. NEUROLOGIC: No facial asymmetry. Tongue is midline. No uvula deviation. Power is 5/5 upper extremities and lower extremities. Sensation intact in upper extremities and lower extremities. PSYCHIATRIC: He is awake, alert and oriented x3. No anxiety or depression. He has normal affect. GENITOURINARY: No CVA tenderness. VASCULAR: 2+ pulses in the carotid pulses and pedal pulses. SKIN: No erythema or nodules SPINE: Shows normal curvature. LABORATORY DATA: His old labs were reviewed. He has a white count of 12.5, hemoglobin 12.6. He has a chemistry shows a sodium of 136, potassium 4.0. He had blood cultures which were negative. His last chest x-ray done did not show any infiltrates. ASSESSMENT: 1. Left subarachnoid hemorrhage, improved. 2. Fall. 3. Dyslipidemia. 4. Left supraorbital laceration with sutures in place. PLAN: The patient is currently on Lipitor for dyslipidemia. He has received a flu shot and a pneumonia shot. He is on losartan for hypertension. He is on Tylenol as needed. He is on a heart-healthy diet. He is currently comfortable. Raúl Coles MD
[2018-06-27] MEDS: cefTRIAXone 1 GM/100 ML BAG IVPB SCH (06:10)
--- NOTE | 2018-06-27 11:16 | PN ---
DATE: 06/27/2018 SUBJECTIVE: The patient has no complaints of any chest pain, no shortness of breath, no headache. PHYSICAL EXAMINATION: GENERAL: The patient is lying in bed, flat, comfortable. VITAL SIGNS: Temperature is 98.3, pulse of 105, blood pressure 141/70, respirations 18. HEENT: No oral lesion. Anicteric sclerae. Moist mucosa. Above the left eye, there is a laceration with sutures and cleaned, decreasing in swelling. NECK: No JVD, adenopathy, or thyromegaly. CARDIOVASCULAR: S1 and S2, regular. No murmurs, rubs, or gallops. LUNGS: Clear to auscultation bilaterally. No wheeze, rales, or rhonchi. ABDOMEN: Bowel sounds are positive, soft, nontender and nondistended. EXTREMITIES: No cyanosis, clubbing or edema. ASSESSMENT: 1. Left subarachnoid hemorrhage, improved. 2. Fall. 3. Dyslipidemia. 4. Left supraorbital lacerations with sutures. PLAN: The patient is on Lipitor for dyslipidemia. He is on losartan for hypertension. The patient is on Tylenol as needed. He is ambulating. He is getting better with physical therapy. Raúl Coles MD
[2018-06-28] MEDS: cefTRIAXone 1 GM/100 ML BAG IVPB SCH (05:03)
--- NOTE | 2018-06-28 10:03 | PN ---
DATE: 06/28/2018 SUBJECTIVE: The patient has no complaints of any chest pain or shortness of breath. PHYSICAL EXAMINATION: GENERAL: The patient is lying in bed, flat, comfortable. VITAL SIGNS: Temperature is 100.1, pulse of 90, blood pressure of 146/79, respirations 18. HEENT: No oral lesion. Anicteric sclerae. Moist mucosa. NECK: No JVD, adenopathy, or thyromegaly. CARDIOVASCULAR: S1 and S2, regular. No murmurs, rubs, or gallops. LUNGS: Clear to auscultation bilaterally. No wheeze, rales, or rhonchi. ABDOMEN: Bowel sounds are positive, soft, nontender and nondistended. EXTREMITIES: No cyanosis, clubbing or edema. ASSESSMENT: 1. Left subarachnoid hemorrhage, improved. 2. Fall. 3. Dyslipidemia. 4. Left supraorbital laceration with sutures. PLAN: The patient is currently comfortable. He has a low-grade fever. I will order blood work. He did have a chest x-ray few days ago that did not show any abnormalities. He had blood and urine cultures that were negative. The patient is on losartan for hypertension and Rocephin for antibiotics. He is on Lipitor for dyslipidemia. Raúl Coles MD
[2018-06-29] MEDS: cefTRIAXone 1 GM/100 ML BAG IVPB SCH (05:08)
[2018-06-29 06:48] LABS: HEMOGLOBIN 11.6 g/dL (14.0-18.0); MEAN CELL VOLUME 90.9 fl (80.0-105.0); MEAN CORPUSCULAR HEMOGLOBIN 30.1 pg (25.0-35.0); MEAN PLATELET VOLUME 9.6 fl (7.0-11.0); RBC 3.86 10^6/uL (3.5-6.1); RED CELL DISTRIBUTION WIDTH 13.6 % (11.5-14.5); WHITE BLOOD COUNT 12.4 10^3/uL (4.5-11.0)
[2018-06-29 07:42] LABS: ALBUMIN 3.6 g/dL (3.0-4.8); ALT/SGPT 70 U/L (7-56); AST/SGOT 75 U/L (17-59); BLOOD UREA NITROGEN 12 mg/dL (7-21); CALCIUM 8.7 mg/dL (8.4-10.5); GFR NON-AFRICAN AMERICAN > 60
--- NOTE | 2018-06-29 12:45 | PN ---
DATE: 06/29/2018 SUBJECTIVE: The patient has no complaints of any chest pain or shortness of breath or headaches. PHYSICAL EXAMINATION: VITAL SIGNS: Temperature is 97.7, pulse of 95, blood pressure 120/70 and respirations 16. GENERAL: The patient is lying in bed, flat, comfortable. HEENT: No oral lesion. Anicteric sclerae. Moist mucosa. NECK: No JVD, adenopathy, or thyromegaly. CARDIOVASCULAR: S1 and S2, regular. No murmurs, rubs, or gallops. LUNGS: Clear to auscultation bilaterally. No wheeze, rales, or rhonchi. ABDOMEN: Bowel sounds are positive, soft, nontender and nondistended. EXTREMITIES: No cyanosis, clubbing or edema. LABORATORY DATA: White count of 12.4 and hemoglobin 11.6. Creatinine 0.7. ASSESSMENT: 1. Left subarachnoid hemorrhage. 2. Fall. 3. Dyslipidemia. 4. Left supraorbital laceration with sutures. PLAN: The patient is currently on Lipitor for dyslipidemia and is on Cozaar. The patient is receiving Tylenol for his fevers. I will change his antibiotics to oral antibiotics with Augmentin. He is doing well with physical therapy. The patient will most likely need his sutures removed prior to going home. Raúl Coles MD
[2018-06-29] MEDS: Amoxicillin-Clav 875-125 mg Tab PO SCH (22:01)
[2018-06-30] MEDS: cefTRIAXone 1 GM/100 ML BAG IVPB SCH (05:18)
--- NOTE | 2018-06-30 06:50 | CP.PCM.PN ---
Objective - Vital Signs/Intake and Output Vital Signs (last 24 hours): Temp Pulse Resp BP Pulse Ox 98.1 F 91 H 16 138/73 100 06/29/18 16:00 06/29/18 16:00 06/29/18 16:00 06/29/18 16:00 06/29/18 16:00 - Medications Medications: Current Medications Amoxicillin/Clavulanate Potassium (Augmentin 875 Mg-125 Mg Tab) 1 tab PO Q12 SHAWN; Protocol Last Admin: 06/29/18 22:01 Dose: 1 tab Atorvastatin Calcium (Lipitor) 10 mg PO DIN SHAWN; Protocol Last Admin: 06/29/18 18:08 Dose: 10 mg Ceftriaxone Sodium (Rocephin 1 Gram Ivpb) 1 gm in 100 mls @ 100 mls/hr IVPB 0600 SHAWN Last Admin: 06/30/18 05:18 Dose: 100 mls/hr Losartan Potassium (Cozaar) 50 mg PO DAILY [facility]; Protocol Last Admin: 06/29/18 09:41 Dose: 50 mg - Labs Labs: 06/29/18 05:00 06/29/18 05:00
[2018-06-30] MEDS: Amoxicillin-Clav 875-125 mg Tab PO SCH ×2 (11:00→21:07)
--- NOTE | 2018-06-30 12:47 | PN ---
DATE: 06/30/2018 SUBJECTIVE: The patient has no complaints of any chest pain or shortness of breath. No headaches or dizziness. PHYSICAL EXAMINATION: VITAL SIGNS: Temperature is 98.1, pulse is 91, blood pressure /73, respirations 16. GENERAL: The patient is lying in bed, flat, comfortable. HEENT: No oral lesion. Anicteric sclerae. Moist mucosa. NECK: No JVD, adenopathy, or thyromegaly. CARDIOVASCULAR: S1 and S2, regular. No murmurs, rubs, or gallops. LUNGS: Clear to auscultation bilaterally. No wheeze, rales, or rhonchi. ABDOMEN: Bowel sounds are positive, soft, nontender and nondistended. EXTREMITIES: No cyanosis, clubbing, or edema. LABORATORY DATA: White count of 12.4, hemoglobin 11.6. Creatinine is 0.7. ASSESSMENT: 1. Left subarachnoid hemorrhage. 2. Fall. 3. Dyslipidemia. 4. Left supraorbital laceration and sutures. PLAN: The patient is on losartan for hypertension. He is on p.o. antibiotics. The patient is on Lipitor for dyslipidemia. He is on a heart healthy diet. I will get surgical evaluation to take out the sundar, the sundar are in for eight days at this point. He is going to be going home in a few days. He is ambulating well. His swelling is improved. Raúl Coles MD
[2018-06-30] MEDS: Bacitracin Ointment 30 GM TUBE TOP SCH (15:12)
[2018-07-01 08:12] LABS: BASO # 0.03 K/mm3 (0.0-2.0); BASO % 0.2 % (0.0-3.0); EOS # 0.1 (0.0-0.7); EOS % 0.9 % (1.5-5.0); GRAN # 10.93 (1.4-6.5); HEMOGLOBIN 12.1 g/dL (14.0-18.0); LYMPH # 1.9 (1.2-3.4); LYMPH % 13.5 % (22.0-35.0); MEAN CELL VOLUME 91.7 fl (80.0-105.0); MEAN CORPUSCULAR HEMOGLOBIN 31.4 pg (25.0-35.0); MEAN CORPUSCULAR HGB CONC 34.3 g/dl (31.0-37.0); MEAN PLATELET VOLUME 9.1 fl (7.0-11.0); MONO # 0.9 (0.1-0.6); MONO % 6.4 % (1.0-6.0); RBC 3.85 10^6/uL (3.5-6.1); RED CELL DISTRIBUTION WIDTH 13.6 % (11.5-14.5); WHITE BLOOD COUNT 13.8 10^3/uL (4.5-11.0)
[2018-07-01] MEDS: Amoxicillin-Clav 875-125 mg Tab PO SCH (09:45)
[2018-07-01] MEDS: Bacitracin Ointment 30 GM TUBE TOP SCH (09:45)
--- NOTE | 2018-07-01 09:49 | CP.PCM.CON ---
<Jaron Robbins - Last Filed: 07/01/18 12:45> History of Present Illness - History of Present Illness History of Present Illness: Infectious disease consult note: 67 M with PMHx of HTN and HLD initially presented to the ED for a fall and found to have a subarachnoid hemorrhage. Patient did not need any neuro surgical intervention at the time. Patient work up was essentially neg and reason for fall was vasovagal. Now patient has been having elevated wbc of 12.4 a few days ago and 13.8 today. Patient does admit to mild cough with some yellow phlegm. Denies any fever, chills, sore throat, sob, chest pain, abd pain, urinary changes, nv/d. 12 Point ROS performed and neg other than stated above. PMHx: as above PSH: appendectomy All: NKA SH: Denies any etoh use, smoking or drugs FH: denies Review of Systems - Review of Systems All systems: reviewed and no additional remarkable complaints except Past Patient History - Past Social History Smoking Status: Never Smoked - CARDIAC Hx Hypercholesterolemia: Yes - MUSCULOSKELETAL/RHEUMATOLOGICAL Hx Falls: No - GASTROINTESTINAL Hx Gastrointestinal Disorders: No (H/O APPENDECTOMY) - GENITOURINARY/GYNECOLOGICAL Hx Genitourinary Disorders: No Hx Reproductive Disorders: No - PSYCHIATRIC Hx Substance Use: No - SURGICAL HISTORY Hx Appendectomy: Yes Meds Allergies/Adverse Reactions: Allergies Allergy/AdvReac Type Severity Reaction Status Date / Time No Known Allergies Allergy Verified 06/25/18 20:10 - Medications Medications: Current Medications Amoxicillin/Clavulanate Potassium (Augmentin 875 Mg-125 Mg Tab) 1 tab PO Q12 SHAWN; Protocol Last Admin: 06/30/18 21:07 Dose: 1 tab Atorvastatin Calcium (Lipitor) 10 mg PO DIN SHAWN; Protocol Last Admin: 06/30/18 17:11 Dose: 10 mg Bacitracin (Bacitracin) 0 gm TOP DAILY SHAWN Last Admin: 06/30/18 15:12 Dose: 1 u Losartan Potassium (Cozaar) 50 mg PO DAILY SHAWN; Protocol Last Admin: 06/30/18 11:00 Dose: 50 mg Physical Exam - Constitutional Appears: No Acute Distress - Head Exam Head Exam: ATRAUMATIC, NORMOCEPHALIC - Eye Exam Eye Exam: EOMI, PERRL - ENT Exam ENT Exam: Mucous Membranes Moist - Respiratory Exam Respiratory Exam: Clear to Auscultation Bilateral. absent: Rales, Rhonchi, Wheezes - Cardiovascular Exam Cardiovascular Exam: REGULAR RHYTHM, +S1, +S2 - GI/Abdominal Exam GI & Abdominal Exam: Normal Bowel Sounds, Soft. absent: Distended - Extremities Exam Extremities exam: Negative for: calf tenderness, pedal edema - Back Exam Back exam: absent: CVA tenderness (L), CVA tenderness (R) - Neurological Exam Neurological exam: Alert, CN II-XII Intact, Oriented x3 - Psychiatric Exam Psychiatric exam: Normal Affect, Normal Mood - Skin Skin Exam: Intact, Warm Results - Vital Signs Recent Vital Signs: Last Vital Signs Temp 100.2 F H 06/30/18 16:00 Pulse 98 H 06/30/18 16:00 Resp 18 06/30/18 16:00 BP 119/72 06/30/18 16:00 Pulse Ox 93 L 06/30/18 16:00 - Labs Result Diagrams: 07/01/18 07:50 06/29/18 05:00 Labs: Laboratory Results - last 24 hr 07/01/18 07:50 WBC 13.8 H RBC 3.85 Hgb 12.1 L Hct 35.3 L MCV 91.7 MCH 31.4 MCHC 34.3 RDW 13.6 Plt Count 416 MPV 9.1 Gran % 79.0 H Lymph % (Auto) 13.5 L Dale % (Auto) 6.4 H Eos % (Auto) 0.9 L Baso % (Auto) 0.2 Gran # 10.93 H Lymph # (Auto) 1.9 Dale # (Auto) 0.9 H Eos # (Auto) 0.1 Baso # (Auto) 0.03 Assessment & Plan - Assessment and Plan (Free Text) Assessment: 67 M with PMHx of HTN and HLD initially presented to the ED for a fall and found to have a subarachnoid hemorrhage. Patient was sent to the TCU for rehab. ID consulted for leukocytosis. - Patient is currently on Augmentin - Septic work up sent out including CXR, UA, and blood cx - F/u CXR official read - F/u rapid flu F/u lower ext doppler which can be a cause of low grade fever - Cont to monitor for any changes Case and plan was reviewed and discussed with Dr Roland. <Martin Roland - Last Filed: 07/01/18 17:13> Meds - Medications Medications: Current Medications Amoxicillin/Clavulanate Potassium (Augmentin 875 Mg-125 Mg Tab) 1 tab PO Q12 SHAWN; Protocol Last Admin: 07/01/18 09:45 Dose: 1 tab Atorvastatin Calcium (Lipitor) 10 mg PO DIN SHAWN; Protocol Last Admin: 07/01/18 17:01 Dose: 10 mg Bacitracin (Bacitracin) 0 gm TOP DAILY SHAWN Last Admin: 07/01/18 09:45 Dose: 1 u Losartan Potassium (Cozaar) 50 mg PO DAILY [facility]AWN; Protocol Last Admin: 07/01/18 09:45 Dose: 50 mg Results - Vital Signs Recent Vital Signs: Last Vital Signs Temp 99.9 F H 07/01/18 16:00 Pulse 102 H 07/01/18 16:00 Resp 18 07/01/18 16:00 BP 133/73 07/01/18 16:00 Pulse Ox 94 L 07/01/18 16:00 - Labs Result Diagrams: 07/01/18 07:50 06/29/18 05:00 Labs: Laboratory Results - last 24 hr 07/01/18 07/01/18 07/01/18 07:50 10:20 11:25 WBC 13.8 H RBC 3.85 Hgb 12.1 L Hct 35.3 L MCV 91.7 MCH 31.4 MCHC 34.3 RDW 13.6 Plt Count 416 MPV 9.1 Gran % 79.0 H Lymph % (Auto) 13.5 L Dale % (Auto) 6.4 H Eos % (Auto) 0.9 L Baso % (Auto) 0.2 Gran # 10.93 H Lymph # (Auto) 1.9 Dale # (Auto) 0.9 H Eos # (Auto) 0.1 Baso # (Auto) 0.03 Urine Color Yellow Urine Appearance Clear Urine pH 6.0 Ur Specific [place] 1.025 Urine Protein Negative Urine Glucose (UA) Negative Urine Ketones Negative Urine Blood Trace-intact H Urine Nitrate Negative Urine Bilirubin Negative Urine Urobilinogen 0.2 Ur Leukocyte Esterase Negative Urine RBC 2 - 5 H Urine WBC 0 - 2 Ur Epithelial Cells None Urine Bacteria Few Influenza Typ A,B (EIA) Negative for flu a/b Assessment & Plan - Assessment and Plan (Free Text) Assessment: Infectious diseases Attending Physician Attestation Patient seen and examined, discussed with medical diagnostic radiographer. I have reviewed the patient's history of present illness, past medical, social, personal and family histories, pertinent physical exam findings, course so far in this hospital admission, pertinent laboratory and imaging results. I agree with the above findings, assessment and plan. In addition, continue Augmentin for probable acute bronchitis or URI in this patient with low grade temperatures. Follow up CXR, Blood, urine cx and will monitor clinically.
--- NOTE | 2018-07-01 10:10 | PN ---
DATE: 07/01/2018 SUBJECTIVE: The patient has no complaints of any chest pain. No shortness of breath. No headaches or dizziness. PHYSICAL EXAMINATION VITAL SIGNS: Temperature is 100.2, pulse of 98, blood pressure is 119/72, respirations 18. GENERAL: The patient is lying in bed, flat, comfortable. HEENT: No oral lesion. Anicteric sclerae. Moist mucosa. NECK: No JVD, adenopathy, or thyromegaly. CARDIOVASCULAR: S1 and S2, regular. No murmurs, rubs, or gallops. LUNGS: Clear to auscultation bilaterally. No wheeze, rales, or rhonchi. ABDOMEN: Bowel sounds are positive, soft, nontender and nondistended. EXTREMITIES: No cyanosis, clubbing or edema. LABORATORY DATA: White count of 12.4, hemoglobin 11.6. Creatinine is 0.7. ASSESSMENT: 1. Left subarachnoid hemorrhage. 2. Fall. 3. Dyslipidemia. 4. Left supraorbital laceration and sutures. PLAN: The patient had a little fever overnight of 100.2. He has been on antibiotics. He is on losartan for hypertension. He is on Lipitor for dyslipidemia. I will get a consult from Infectious Diseases. He has had chest x-ray and blood cultures that have been negative. He will need sundar removed. I have asked Dr. Eddy to help remove the sundar. Raúl Coles MD
--- NOTE | 2018-07-01 10:31 | PCM.PROC ---
Suture Removal/Wound Check - Time Time: 10:29 - Historian Historian: Patient - Chief Complaints Chief complaint: Suture removal
--- NOTE | 2018-07-01 10:34 | RAD ---
Date of service: 07/01/2018 HISTORY: Rule out pneumonia COMPARISON: 06/24/2018. FINDINGS: LUNGS: The lungs are well inflated and clear. There is patchy airspace disease in the right lower lobe. PLEURA: No pleural effusions or pneumothorax. CARDIOVASCULAR: The heart is normal in size. No aortic atherosclerotic calcifications present. OSSEOUS STRUCTURES: Within normal limits for the patient's age. VISUALIZED UPPER ABDOMEN: Normal. OTHER FINDINGS: None. IMPRESSION: Patchy airspace disease in the right lower lobe may represent subsegmental atelectasis however superimposed pneumonia cannot be entirely excluded. Follow-up after medical management is recommended to ensure complete resolution.
[2018-07-01 11:42] LABS: URINE BILIRUBIN NEGATIVE (NEGATIVE); URINE BLOOD TRACE-INTACT (NEGATIVE); URINE GLUCOSE (UA) NEGATIVE (NEGATIVE); URINE LEUKOCYTE ESTERASE NEGATIVE Leu/uL (NEGATIVE); URINE PROTEIN NEGATIVE mg/dL (<30 mg/dL); URINE UROBILINOGEN 0.2 E.U./dL (<1 E.U./dL)
[2018-07-01 11:43] LABS: URINE APPEARANCE CLEAR (CLEAR); URINE COLOR YELLOW (YELLOW)
[2018-07-01 11:57] LABS: URINE BACTERIA FEW /hpf; URINE WBC 0 - 2 /hpf (0-6)
--- NOTE | 2018-07-01 19:02 | US ---
HISTORY: Leg pain and swelling. Evaluate for DVT PHYSICIAN(S): Frandy Doe MD. TECHNIQUE: Duplex sonography and color-flow Doppler with graded compression were used to evaluate the deep venous systems of both lower extremities. FINDINGS: The visualized deep venous systems of both lower extremities are sonographically normal and compressible. Normal wave forms and augmentation are seen. There is no sonographic evidence for deep venous thrombosis in the visualized segments of both lower extremities. IMPRESSION: No sonographic evidence for deep venous thrombosis in the visualized segments of both lower extremities.
[2018-07-01] MEDS ORDERED: Cefepime 1gm in NS 100ml 1 GM/100 ML BAG IVPB SCH (22:00)
[2018-07-01] MEDS ORDERED: Cefepime (Maxipime) 1 g Inj IVPB SCH (22:00)
[2018-07-02] MEDS ORDERED: Cefepime 1gm in NS 100ml 1 GM/100 ML BAG IVPB SCH (03:20)
[2018-07-02] MEDS ORDERED: Vancomycin 1gm in NS 250ml 1 GM/250 ML BAG IVPB SCH ×2 (06:00→10:00)
--- NOTE | 2018-07-02 08:26 | CP.PCM.PN ---
<Jaron Robbins - Last Filed: 07/02/18 13:07> Subjective - Date & Time of Evaluation Date of Evaluation: 07/02/18 Time of Evaluation: 07:20 - Subjective Subjective: Infectious disease progress note: Pt seen and examined at bedside. No acute events overnight. Patient complains of some cough with whitish sputum. No other complaints. 12 Point ROS performed and neg other than stated above. Objective - Vital Signs/Intake and Output Vital Signs (last 24 hours): Temp Pulse Resp BP Pulse Ox 99.9 F H 102 H 18 133/73 94 L 07/01/18 16:00 07/01/18 16:00 07/01/18 16:00 07/01/18 16:00 07/01/18 16:00 Intake and Output: 07/02/18 07/02/18 06:59 18:59 Intake Total 300 Balance 300 - Medications Medications: Current Medications Atorvastatin Calcium (Lipitor) 10 mg PO DIN SHAWN; Protocol Last Admin: 07/01/18 17:01 Dose: 10 mg Bacitracin (Bacitracin) 0 gm TOP DAILY SHAWN Last Admin: 07/01/18 09:45 Dose: 1 u Vancomycin HCl (Vancomycin 1gm) 1 gm in 250 mls @ 167 mls/hr IVPB Q12 [facility]; Protocol Cefepime HCl (Maxipime 1gm) 1 gm in 100 mls @ 100 mls/hr IVPB Q8 [facility]AWN; Protocol Losartan Potassium (Cozaar) 50 mg PO DAILY SHAWN; Protocol Last Admin: 07/01/18 09:45 Dose: 50 mg - Labs Labs: 07/01/18 07:50 06/29/18 05:00 - Constitutional Appears: No Acute Distress - Head Exam Head Exam: ATRAUMATIC, NORMOCEPHALIC - Eye Exam Eye Exam: EOMI - ENT Exam ENT Exam: Mucous Membranes Moist - Respiratory Exam Respiratory Exam: Clear to Ausculation Bilateral Additional comments: no r/r/w - GI/Abdominal Exam GI & Abdominal Exam: Soft, Normal Bowel Sounds - Extremities Exam Extremities Exam: absent: Calf Tenderness, Pedal Edema, Tenderness - Neurological Exam Neurological Exam: Alert, Awake, Oriented x3 - Psychiatric Exam Psychiatric exam: Normal Mood - Skin Skin Exam: Dry, Warm Assessment and Plan - Assessment and Plan (Free Text) Assessment: 67 M with PMHx of HTN and HLD initially presented to the ED for a fall and found to have a subarachnoid hemorrhage. Patient was sent to the TCU for rehab. Now presents with bronchitis r/o pneumonia. - Augmentin was d/kim - Started on Vanc and Cefepime - Septic work up including CXR, UA, and blood cx - F/u rapid flu - neg - Lower ext doppler - neg - Blood cx x 1 neg , UA neg - Cont to monitor for any changes Case and plan was reviewed and discussed with Dr Roland. <Martin Roland - Last Filed: 07/02/18 20:53> Objective - Vital Signs/Intake and Output Vital Signs (last 24 hours): Temp Pulse Resp BP Pulse Ox 98.6 F 90 18 143/73 92 L 07/02/18 16:00 07/02/18 16:00 07/02/18 16:00 07/02/18 16:00 07/02/18 16:00 - Medications Medications: Current Medications Atorvastatin Calcium (Lipitor) 10 mg PO DIN SHAWN; Protocol Last Admin: 07/02/18 17:24 Dose: 10 mg Bacitracin (Bacitracin) 0 gm TOP DAILY SHAWN Last Admin: 07/02/18 10:00 Dose: 1 u Cefepime HCl (Maxipime 1gm) 1 gm in 100 mls @ 100 mls/hr IVPB Q8 SHAWN; Protocol Last Admin: 07/02/18 14:11 Dose: 100 mls/hr Vancomycin HCl (Vancomycin 1gm) 1 gm in 250 mls @ 167 mls/hr IVPB 0600,1800 SHAWN ; Protocol Stop: 07/06/18 19:30 Losartan Potassium (Cozaar) 50 mg PO DAILY SHAWN; Protocol Last Admin: 07/02/18 09:59 Dose: 50 mg - Labs Labs: 07/01/18 07:50 06/29/18 05:00 Assessment and Plan - Assessment and Plan (Free Text) Assessment: Infectious diseases Attending Physician Attestation Patient seen and examined, discussed with medical librarian. I have reviewed the patient's history of present illness, past medical, social, personal and family histories, pertinent physical exam findings, course so far in this hospital admission, pertinent laboratory and imaging results. I agree with the above findings, assessment and plan. In addition, monitor off antibiotics - patient with probable acute bronchitis, R/O right lower lobe HCAP. Follow up cultures, PCT. Reviewed CXR. Discussed with Dr. Vargas.
[2018-07-02] MEDS: Bacitracin Ointment 30 GM TUBE TOP SCH (10:00)
[2018-07-02] MEDS: Vancomycin 1gm in NS 250ml 1 GM/250 ML BAG IVPB SCH ×2 (10:00→17:24)
--- NOTE | 2018-07-02 12:46 | PN ---
DATE: 07/02/2018 SUBJECTIVE: The patient has no complaints of any chest pain. No shortness of breath. No headaches. PHYSICAL EXAMINATION: VITAL SIGNS: Temperature is 99.9, pulse of 102, blood pressure is 133/73, respirations 18. GENERAL: The patient is lying in bed, flat, comfortable. HEENT: No oral lesion. Anicteric sclerae. Moist mucosa. NECK: No JVD, adenopathy, or thyromegaly. CARDIOVASCULAR: S1 and S2, regular. No murmurs, rubs, or gallops. LUNGS: Clear to auscultation bilaterally. No wheeze, rales, or rhonchi. ABDOMEN: Bowel sounds are positive, soft, nontender and nondistended. EXTREMITIES: No cyanosis, clubbing or edema. LABORATORY DATA: White count of 13.8, hemoglobin 12.1. Chest x-ray done shows patchy airspace disease in the right lower lobe. Low extremity Dopplers, no DVT. ASSESSMENT: 1. Hospital-acquired pneumonia. 2. Fall. 3. Dyslipidemia. 4. Left subarachnoid hemorrhage. 5. Left supraorbital laceration suture removal. PLAN: The patient is currently comfortable. He has been started on IV antibiotics and losartan for hypertension. The patient is on Lipitor for dyslipidemia. He is on a heart-healthy diet. His discharge mostly likely needs to be extended because of his pneumonia. He will need 4 to 7 days of antibiotics. Today is day #1 out of 4. Raúl Coles MD
[2018-07-02] MEDS: Cefepime 1gm in NS 100ml 1 GM/100 ML BAG IVPB SCH ×2 (14:11→21:26)
[2018-07-03] MEDS: Vancomycin 1gm in NS 250ml 1 GM/250 ML BAG IVPB SCH ×2 (05:25→17:24)
[2018-07-03] MEDS: Cefepime 1gm in NS 100ml 1 GM/100 ML BAG IVPB SCH ×3 (05:25→21:29)
[2018-07-03] MEDS: Bacitracin Ointment 30 GM TUBE TOP SCH (09:21)
--- NOTE | 2018-07-03 13:08 | CP.PCM.PN ---
<Jaron Robbins - Last Filed: 07/03/18 13:05> Subjective - Date & Time of Evaluation Date of Evaluation: 07/03/18 Time of Evaluation: 09:20 - Subjective Subjective: Infectious disease progress note: Pt seen and examined at bedside. No acute events overnight. He still complains of some cough and some wheezing. No other complaints. 12 Point ROS performed and neg other than stated above. Objective - Vital Signs/Intake and Output Vital Signs (last 24 hours): Temp Pulse Resp BP Pulse Ox 98.1 F 103 H 20 137/69 97 07/03/18 10:00 07/03/18 10:00 07/03/18 10:00 07/03/18 10:00 07/03/18 10:00 Intake and Output: 07/03/18 07/03/18 06:59 18:59 Intake Total 340 Balance 340 - Medications Medications: Current Medications Atorvastatin Calcium (Lipitor) 10 mg PO DIN SHAWN; Protocol Last Admin: 07/02/18 17:24 Dose: 10 mg Bacitracin (Bacitracin) 0 gm TOP DAILY SHAWN Last Admin: 07/03/18 09:21 Dose: 1 u Cefepime HCl (Maxipime 1gm) 1 gm in 100 mls @ 100 mls/hr IVPB Q8 SHAWN; Protocol Last Admin: 07/03/18 05:25 Dose: 100 mls/hr Vancomycin HCl (Vancomycin 1gm) 1 gm in 250 mls @ 167 mls/hr IVPB 0600,1800 SHAWN; Protocol Stop: 07/06/18 19:30 Last Admin: 07/03/18 05:25 Dose: 167 mls/hr Losartan Potassium (Cozaar) 50 mg PO DAILY SHAWN; Protocol Last Admin: 07/03/18 09:21 Dose: 50 mg - Labs Labs: 07/01/18 07:50 06/29/18 05:00 - Constitutional Appears: No Acute Distress - Head Exam Head Exam: ATRAUMATIC, NORMOCEPHALIC - Eye Exam Eye Exam: EOMI - ENT Exam ENT Exam: Mucous Membranes Moist - Respiratory Exam Respiratory Exam: Clear to Ausculation Bilateral Additional comments: r/r/w - Cardiovascular Exam Cardiovascular Exam: REGULAR RHYTHM, +S1, +S2 - GI/Abdominal Exam GI & Abdominal Exam: Soft, Normal Bowel Sounds - Extremities Exam Extremities Exam: absent: Calf Tenderness, Pedal Edema - Neurological Exam Neurological Exam: Alert, Awake, Oriented x3 - Psychiatric Exam Psychiatric exam: Normal Mood - Skin Skin Exam: Dry, Intact, Normal Color Assessment and Plan - Assessment and Plan (Free Text) Assessment: 67 M with PMHx of HTN and HLD initially presented to the ED for a fall and found to have a subarachnoid hemorrhage. Patient was sent to the TCU for rehab. Now presents with acute bronchitis r/o pneumonia. - Procalcitonin was low - Continue abx with Vanc and Cefepime - F/u rapid flu - neg - Lower ext doppler - neg - Blood cx neg , UA neg - Cont to monitor for any changes Case and plan was reviewed and discussed with Dr oRland. <Martin Roland - Last Filed: 07/03/18 16:50> Objective - Vital Signs/Intake and Output Vital Signs (last 24 hours): Temp Pulse Resp BP Pulse Ox 100.1 F H 103 H 20 137/69 97 07/03/18 16:46 07/03/18 10:00 07/03/18 10:00 07/03/18 10:00 07/03/18 10:00 Intake and Output: 07/03/18 07/03/18 06:59 18:59 Intake Total 340 Balance 340 - Medications Medications: Current Medications Acetaminophen (Tylenol 325mg Tab) 650 mg PO Q4H PRN PRN Reason: temp over 100 Last Admin: 07/03/18 16:46 Dose: 650 mg Atorvastatin Calcium (Lipitor) 10 mg PO DIN SHAWN; Protocol Last Admin: 07/02/18 17:24 Dose: 10 mg Bacitracin (Bacitracin) 0 gm TOP DAILY SHAWN Last Admin: 07/03/18 09:21 Dose: 1 u Guaifenesin (Robitussin) 100 mg PO Q4H PRN PRN Reason: Cough Cefepime HCl (Maxipime 1gm) 1 gm in 100 mls @ 100 mls/hr IVPB Q8 SHAWN; Protocol Last Admin: 07/03/18 13:18 Dose: 100 mls/hr Vancomycin HCl (Vancomycin 1gm) 1 gm in 250 mls @ 167 mls/hr IVPB 0600,1800 SHAWN; Protocol Stop: 07/06/18 19:30 Last Admin: 07/03/18 05:25 Dose: 167 mls/hr Losartan Potassium (Cozaar) 50 mg PO DAILY [facility]; Protocol Last Admin: 07/03/18 09:21 Dose: 50 mg - Labs Labs: 07/01/18 07:50 06/29/18 05:00 Assessment and Plan - Assessment and Plan (Free Text) Assessment: Infectious diseases Attending Physician Attestation Patient seen and examined, discussed with medical assistant ob gyn. I have reviewed the patient's history of present illness, past medical, social, personal and family histories, pertinent physical exam findings, course so far in this hospital admission, pertinent laboratory and imaging results. I agree with the above findings, assessment and plan. In addition, continue Vancomycin and Cefepime for patient with acute bronchitis R/O right lower lobe HCAP. Follow up final culture results. PCT is low. Will continue to monitor clinically.
[2018-07-03] MEDS: guaiFENesin 100 mg/5 ml Syrup UD PO PRN ×2 (17:01→21:29)
--- NOTE | 2018-07-04 01:03 | PN ---
DATE: 07/03/2018 SUBJECTIVE: The patient has no complaints of any chest pain or shortness of breath. No headache. No dizziness. PHYSICAL EXAMINATION: VITAL SIGNS: Temperature is 97.6, pulse of 98, blood pressure 132/73, respirations 18. GENERAL: The patient is lying in bed, flat, comfortable. HEENT: No oral lesion. Anicteric sclerae. Moist mucosa. NECK: No JVD, adenopathy, or thyromegaly. CARDIOVASCULAR: S1 and S2, regular. No murmurs, rubs, or gallops. LUNGS: Clear to auscultation bilaterally. No wheeze, rales, or rhonchi. ABDOMEN: Bowel sounds are positive, soft, nontender and nondistended. EXTREMITIES: No cyanosis, clubbing or edema. ASSESSMENT: 1. Hospital acquired pneumonia. 2. Fall. 3. Dyslipidemia. 4. Left subarachnoid hemorrhage. 5. Left supraorbital laceration, status post removal of sutures. PLAN: The patient is currently comfortable. He is currently being followed by Infectious Disease. He is on Losartan for his hypertension. He is on Lipitor for his dyslipidemia. He is on cefepime and vancomycin for his antibiotics. He is on Tylenol as needed. The patient had blood cultures and urine cultures that have been negative. He did have a low grade fever of 100.1. His procalcitonin level is low. Raúl Coles MD
[2018-07-04] MEDS: Vancomycin 1gm in NS 250ml 1 GM/250 ML BAG IVPB SCH ×2 (05:17→17:39)
[2018-07-04] MEDS: Cefepime 1gm in NS 100ml 1 GM/100 ML BAG IVPB SCH ×3 (05:17→21:10)
[2018-07-04] MEDS: guaiFENesin 100 mg/5 ml Syrup UD PO PRN ×3 (09:23→22:25)
[2018-07-04] MEDS: Bacitracin Ointment 30 GM TUBE TOP SCH (09:23)
--- NOTE | 2018-07-04 16:06 | CP.PCM.PN ---
Subjective - Date & Time of Evaluation Date of Evaluation: 07/04/18 Time of Evaluation: 16:00 - Subjective Subjective: Cough is getting better, no fevers today, no nausea, no diarrhea, feeling a little better. Objective - Vital Signs/Intake and Output Vital Signs (last 24 hours): Temp Pulse Resp BP Pulse Ox 99.2 F 98 H 18 151/83 H 92 L 07/04/18 13:12 07/03/18 16:00 07/03/18 16:00 07/04/18 09:23 07/03/18 16:00 - Medications Medications: Current Medications Acetaminophen (Tylenol 325mg Tab) 650 mg PO Q4H PRN PRN Reason: temp over 100 Last Admin: 07/04/18 13:12 Dose: 650 mg Atorvastatin Calcium (Lipitor) 10 mg PO DIN SHAWN; Protocol Last Admin: 07/03/18 17:24 Dose: 10 mg Bacitracin (Bacitracin) 0 gm TOP DAILY SHAWN Last Admin: 07/04/18 09:23 Dose: 1 u Guaifenesin (Robitussin) 100 mg PO Q4H PRN PRN Reason: Cough Last Admin: 07/04/18 13:13 Dose: 100 mg Cefepime HCl (Maxipime 1gm) 1 gm in 100 mls @ 100 mls/hr IVPB Q8 SHAWN; Protocol Last Admin: 07/04/18 13:13 Dose: 100 mls/hr Vancomycin HCl (Vancomycin 1gm) 1 gm in 250 mls @ 167 mls/hr IVPB 0600,1800 SHAWN; Protocol Stop: 07/06/18 19:30 Last Admin: 07/04/18 05:17 Dose: 167 mls/hr Losartan Potassium (Cozaar) 50 mg PO DAILY SHAWN; Protocol Last Admin: 07/04/18 09:23 Dose: 50 mg - Labs Labs: 07/01/18 07:50 06/29/18 05:00 - Constitutional Appears: Chronically Ill - Head Exam Head Exam: NORMAL INSPECTION - Neck Exam Neck Exam: absent: Meningismus - Respiratory Exam Respiratory Exam: Decreased Breath Sounds - Cardiovascular Exam Cardiovascular Exam: +S1, +S2 - GI/Abdominal Exam GI & Abdominal Exam: Soft. absent: Tenderness Assessment and Plan - Assessment and Plan (Free Text) Plan: Assessment Acute bronchitis R/O right lower lobe HCAP HTN dyslipidemia history of subarachnoid hemorrhage Plan continue Vancomycin and Cefepime day 3 for 4-7 days will continue to monitor clinically
[2018-07-04 17:07] VITALS: O2SAT 93
--- NOTE | 2018-07-04 21:52 | PN ---
DATE: 07/04/2018 SUBJECTIVE: The patient has no complaints of any chest pain or shortness of breath. No headache. No dizziness. PHYSICAL EXAMINATION VITAL SIGNS: Temperature of 98.1, pulse of 109, blood pressure is 146/66, respirations 18. GENERAL: The patient is lying in bed, flat, comfortable. HEENT: No oral lesion. Anicteric sclerae. Moist mucosa. NECK: No JVD, adenopathy, or thyromegaly. CARDIOVASCULAR: S1 and S2, regular. No murmurs, rubs, or gallops. LUNGS: Clear to auscultation bilaterally. No wheeze, rales, or rhonchi. ABDOMEN: Bowel sounds are positive, soft, nontender and nondistended. EXTREMITIES: No cyanosis, clubbing or edema. LABORATORY DATA: White count of 13.8 on 07/01/2018. ASSESSMENT: 1. Hospital-acquired pneumonia. 2. Fall. 3. Dyslipidemia. 4. Left subarachnoid hemorrhage. 5. Left supraorbital laceration, status post removal of sutures. PLAN: The patient is currently comfortable. He had blood cultures and urine cultures that have been negative. The patient is on day #3 of vancomycin and cefepime. Will finish four days and will discharge the patient home. Did speak to Dr. Bajwa regarding the patient. I did update Dr. Bajwa, the patient's primary care doctor. The patient is on losartan for hypertension and Lipitor for dyslipidemia, and Tylenol if needed. Raúl Coles MD
[2018-07-05] MEDS: guaiFENesin 100 mg/5 ml Syrup UD PO PRN ×2 (05:10→09:04)
[2018-07-05] MEDS: Cefepime 1gm in NS 100ml 1 GM/100 ML BAG IVPB SCH (05:10)
[2018-07-05] MEDS: Vancomycin 1gm in NS 250ml 1 GM/250 ML BAG IVPB SCH (06:42)
[2018-07-05 08:36] LABS: HEMOGLOBIN 10.7 g/dL (14.0-18.0); MEAN CELL VOLUME 94.9 fl (80.0-105.0); MEAN CORPUSCULAR HEMOGLOBIN 34.4 pg (25.0-35.0); MEAN CORPUSCULAR HGB CONC 36.3 g/dl (31.0-37.0); MEAN PLATELET VOLUME 9.1 fl (7.0-11.0); RBC 3.11 10^6/uL (3.5-6.1); WHITE BLOOD COUNT 13.7 10^3/uL (4.5-11.0)
[2018-07-05] MEDS: Bacitracin Ointment 30 GM TUBE TOP SCH (09:04)
[2018-07-05 09:18] LABS: ALB/GLOB RATIO 0.9 (1.1-1.8); ALBUMIN 3.3 g/dL (3.0-4.8); ALT/SGPT 126 U/L (7-56); AST/SGOT 87 U/L (17-59); BLOOD UREA NITROGEN 9 mg/dL (7-21); CALCIUM 8.4 mg/dL (8.4-10.5); GFR NON-AFRICAN AMERICAN > 60
[2018-07-05 10:11] VITALS: BP 148/81; PULSE 103; RESP 20; TEMP 98.3
--- NOTE | 2018-07-05 14:24 | CP.PCM.PN ---
Subjective - Date & Time of Evaluation Date of Evaluation: 07/05/18 Time of Evaluation: 11:10 - Subjective Subjective: No fevers, not in distress, comfortable on a chair. Objective - Vital Signs/Intake and Output Vital Signs (last 24 hours): Temp Pulse Resp BP Pulse Ox 99.2 F 98 H 18 151/83 H 92 L 07/04/18 13:12 07/03/18 16:00 07/03/18 16:00 07/04/18 09:23 07/03/18 16:00 - Medications Medications: Current Medications Acetaminophen (Tylenol 325mg Tab) 650 mg PO Q4H PRN PRN Reason: temp over 100 Last Admin: 07/04/18 13:12 Dose: 650 mg Atorvastatin Calcium (Lipitor) 10 mg PO DIN SHAWN; Protocol Last Admin: 07/03/18 17:24 Dose: 10 mg Bacitracin (Bacitracin) 0 gm TOP DAILY SHAWN Last Admin: 07/04/18 09:23 Dose: 1 u Guaifenesin (Robitussin) 100 mg PO Q4H PRN PRN Reason: Cough Last Admin: 07/04/18 13:13 Dose: 100 mg Cefepime HCl (Maxipime 1gm) 1 gm in 100 mls @ 100 mls/hr IVPB Q8 SHAWN; Protocol Last Admin: 07/04/18 13:13 Dose: 100 mls/hr Vancomycin HCl (Vancomycin 1gm) 1 gm in 250 mls @ 167 mls/hr IVPB 0600,1800 SHAWN; Protocol Stop: 07/06/18 19:30 Last Admin: 07/04/18 05:17 Dose: 167 mls/hr Losartan Potassium (Cozaar) 50 mg PO DAILY SHAWN; Protocol Last Admin: 07/04/18 09:23 Dose: 50 mg - Labs Labs: 07/01/18 07:50 06/29/18 05:00 - Constitutional Appears: Chronically Ill - Head Exam Head Exam: NORMAL INSPECTION - Neck Exam Neck Exam: absent: Meningismus - Respiratory Exam Respiratory Exam: Decreased Breath Sounds - Cardiovascular Exam Cardiovascular Exam: +S1, +S2 - GI/Abdominal Exam GI & Abdominal Exam: Soft. absent: Tenderness Assessment and Plan - Assessment and Plan (Free Text) Plan: Assessment Acute bronchitis R/O right lower lobe HCAP HTN dyslipidemia history of subarachnoid hemorrhage Plan on Vancomycin and Cefepime day 4 for 4-7 days
--- NOTE | 2018-07-06 02:51 | DS ---
HISTORY OF PRESENT ILLNESS: This is a 67-year-old male who was admitted to the Transitional Care Unit for rehab. The patient had a fall and developed subarachnoid hemorrhage, the subarachnoid hemorrhage had improved on a repeat CAT scan. The patient was having fevers and was found to have hospital-acquired pneumonia. The patient was seen by Infectious Disease and was placed on antibiotics. He is finished 4 days of antibiotic and currently discharged home. The patient is currently feeling well. He is ambulating. He has no complaints of any headaches or dizziness. PHYSICAL EXAMINATION: VITAL SIGNS: Temperature is 98.3, pulse 103, blood pressure 148/81, respirations 20 and O2 saturation 93%. GENERAL: The patient is lying in bed, flat, comfortable. HEENT: No oral lesion. Anicteric sclerae. Moist mucosa. NECK: No JVD, adenopathy, or thyromegaly. CARDIOVASCULAR: S1 and S2, regular. No murmurs, rubs, or gallops. LUNGS: Clear to auscultation bilaterally. No wheeze, rales, or rhonchi. ABDOMEN: Bowel sounds are positive, soft, nontender and nondistended. EXTREMITIES: No cyanosis, clubbing or edema. ASSESSMENT: 1. Hospital-acquired pneumonia. 2. Fall. 3. Dyslipidemia. 4. Left subarachnoid hemorrhage. 5. Left supraorbital laceration, status post removal of sutures. PLAN: The patient is going to continue his losartan for his hypertension and continue his Lipitor. He is comfortable. He has no complaints. White count was mildly elevated 13. He going to followup with Dr. Bajwa. CONDITION: Stable. ACTIVITIES: Increase as tolerated. Raúl Coles MD
== END 2018-07-05 13:29 | disposition home or self-care (01) | DRG 85 ==
LOC: TRCU 16:38
PROVIDERS: ADMIT Internal Medicine Nephrology; ATTEND Internal Medicine Nephrology
PROC: F07Z9ZZ Gait Training/Functional Ambulation Treatment (ICD-10-PCS; principal; 2018-06-26)
PROC: F07M6ZZ Therapeutic Exercise Treatment of Musculoskeletal System - Whole Body (ICD-10-PCS; 2018-06-26)
PROC: F08Z1ZZ Dressing Techniques Treatment (ICD-10-PCS; 2018-06-26)
PROC: F08Z2ZZ Grooming/Personal Hygiene Treatment (ICD-10-PCS; 2018-06-26)
PROC: F08Z0ZZ Bathing/Showering Techniques Treatment (ICD-10-PCS; 2018-06-26)
PROC: F08Z4ZZ Home Management Treatment (ICD-10-PCS; 2018-06-26)
PROC: 8E09XY8 Suture Removal from Head and Neck Region (ICD-10-PCS; 2018-07-01)
DX: S06.6X0A Traumatic subarachnoid hemorrhage without loss of consciousness, initial encounter (principal); J18.9 Pneumonia, unspecified organism; E78.5 Hyperlipidemia, unspecified; E78.00 Pure hypercholesterolemia, unspecified; I10 Essential (primary) hypertension; Y95 Nosocomial condition; J06.9 Acute upper respiratory infection, unspecified; J20.9 Acute bronchitis, unspecified; S01.112A Laceration without foreign body of left eyelid and periocular area, initial encounter; W19.XXXA Unspecified fall, initial encounter; Z90.49 Acquired absence of other specified parts of digestive tract